=== PATIENT | male | born 1965 | race Hispanic/Latino ===

== ENCOUNTER 2021-02-26 02:44 | Emergency (ER) | payer OTHER ==
--- OUTSIDE RECORDS SUMMARY | 2021-02-26 02:47 | XMS REPORT | Continuity of Care Document ---
:1965 Author Organization [facility] t Address [address] [place] [address] Care Team Providers Name Role Phone [facility]ician ALLAN Attending Clinician Unavailable Allan PINEDO Attending Clinician ALLAN Admitting Clinician Unavailable Payers Payer Name Policy Type Policy Number Effective Date Expiration Date S desirae CIGNA II [id number] 2020 00:00:00 Problems Condition Condition Condition Status Onset Resolution Last Treating Co mments Source Name Details Category Date Date Treatment Clinician Date Right Right Disease Active Univers inguinal inguinal 10-23 ity of hernia hernia 00:00: [address] Allergies, Adverse Reactions, Alerts Allergy Allergy Status Severity Reaction(s) Onset Inactive Treating Comm ents Source Name Type Date Date Clinician NO KNOWN Drug Active Univers ALLERGIE Class ity of S [facility] Social History Social Habit Start Date Stop Date Quantity Comments Source History of tobacco Cigarette Smoker University of use [facility] Exposure to Not sure University SARS-CoV-2 (event) [facility] Alcohol intake 2020-12-13 2020-12-13 Current drinker Unive rsity of 00:00:00 00:00:00 of alcohol [facility] (finding) [place] Tobacco Comment 2020-11-05 2020-11-05 max 5/daily Universi ty of 00:00:00 00:00:00 [facility] Cigarettes smoked 2020-10-23 2020-10-23 Univers ity of current (pack per 00:00:00 00:00:00 ) - Reported Branch Cigarette 2020-10-23 2020-10-23 University of pack-years 00:00:00 00:00:00 [facility] Tobacco use and 2020-10-23 2020-10-23 Never used Universit y of exposure 00:00:00 00:00:00 [facility] Sex Assigned At [birth year] Universit y of 00:00:00 00:00:00 [facility] Smoking Status Start Date Stop Date Source Current every day smoker 2020-10-23 00:00:00 Uni versity [facility] Medications Ordered Filled Start Stop Current Ordering Indication Dosage Frequency Signature Comments Components Source Medication Medication Date Date Medication? Clinician (SIG) Name Name ibuprofen Yes TAKE 1 Univer s 600 mg 7-22 TABLET BY ity of tablet 00:00: MOUTH EVERY 6 TO Medical 8 HOURS Branch NEEDED losartan 50 Yes 50mg Take 50 mg Univers mg tablet 7-22 by mouth ity of 00:00: daily. [place] [facility] Branch lovastatin Yes TAKE 1 Unive rs 40 mg 7-22 TABLET BY ity of tablet 00:00: MOUTH [place] 00 EVERY DAY Medical AT NIGHT Branch metFORMIN Yes 850mg Take 850 Uni vers 850 mg 7-22 mg by ity of tablet 00:00: mouth [place] daily. [facility] Vital Signs Vital Name Observation Time Observation Value Comments Source Systolic blood 2020-12-13 15:36:00 115 mm[Hg] Univer sity of pressure [facility] Diastolic blood 2020-12-13 15:36:00 72 mm[Hg] Unive rsity of pressure [facility] Heart rate 2020-12-13 15:36:00 80 /min [facility] Body temperature 2020-12-13 15:36:00 37 Faye [facility] Res[facility] rate 2020-12-13 15:36:00 18 /min [facility] Body height 2020-12-13 15:36:00 172.7 cm [facility] Body weight 2020-12-13 15:36:00 78.291 kg [facility] BMI 2020-12-13 15:36:00 26.24 kg/m2 [facility] Oxygen saturation in 2020-12-13 15:36:00 95 /min University of Arterial blood by [facility] Pulse oximetry Branch Procedures This patient has no known procedures. Encounters Start End Encounter Admission Attending Care Care Encounter Source Date/Time Date/Time Type Type Clinicians Facility Department ID 2021-01-21 Outpatient Jerry KLINE [facility] DIANNE [id number] Univers 14:34:02 SWATI ely [facility] 2020-12-13 2020-12-13 Office Allan [facility] [id number] Univers 10:26:06 11:07:33 Visit Swati Castro [id number] i ty of [place] [id number] [place] Professio [id number] N[place] dical nal [address] [facility] 2020-12-13 2020-12-13 [facility] [id number] Univers 10:45:00 10:45:00 SWATI [id number] [facility] 2020-12-13 2020-12-13 Outpatient Jerry KLINE [facility] [id number] Univers 10:45:00 10:45:00 SWATI [facility] 2020-12-06 2020-12-06 [facility] [id number] Univers 10:30:00 10:30:00 SWATI [id number] [facility] 2020-11-13 2020-11-13 [facility] [id number] Univers 16:30:00 16:30:00 SWATI [facility] 2020-11-02 2020-11-02 Outpatient [facility] [id number] Univers 08:15:00 08:15:00 [id number] [facility] 2020-11-02 2020-11-02 [facility] [id number] Univers 08:15:00 08:15:00 SWATI [facility] 2020-10-23 2020-10-23 [facility] [id number] Univers 14:00:00 14:00:00 SWATI [facility] Results This patient has no known results.
[2021-02-26] MEDS ORDERED: MORPHINE 4 MG/ML SYR ONE (03:18)
[2021-02-26] MEDS ORDERED: ONDANSETRON 4 MG/2 ML VIAL ONE (03:18)
[2021-02-26] MEDS ORDERED: NA CHLORIDE 0.9% 1,000 ML ONE (03:18)
[2021-02-26 03:53] LABS: Absolute Lymphocytes (CBC) 3.2 K/uL (0.7-4.9); Basophils % 0.4 % (0-1.3); Hematocrit 40.9 % (39.6-49.0); Lymphocytes % 47.4 % (15.3-44.8); MPV 8.6 fL (7.6-11.3)
[2021-02-26 04:07] LABS: ALT/SGPT 27 U/L (12-78); AST/SGOT 27 U/L (15-37); Albumin 3.7 g/dL (3.4-5.0); Alkaline Phosphatase 66 U/L (45-117); BUN Blood Urea Nitrogen 15 mg/dL (7-18); Bicarbonate 27 mmol/L (21-32); Bilirubin Direct 0.1 mg/dL (0-0.2); Bilirubin Total 0.5 mg/dL (0.2-1.0); Glucose Level 107 mg/dL (74-106); Lipase 85 U/L (73-393); Potassium 3.6 mmol/L (3.5-5.1); Protein, Total 7.3 g/dL (6.4-8.2); Sodium Level 142 mmol/L (136-145); Troponin (Emerg Dept Use Only) < 0.02 ng/mL (0.0-0.045)
--- NOTE | 2021-02-26 05:16 | ER ---
Nurse's Notes [facility] Name: Harsha Ballard Age: 55 yrs Sex: Male : 1965 Arrival Date: 02/26/2021 Time: 02:50 Bed 7 Private MD: Diagnosis: Abdominal pain. Cholelithiasis Presentation: 02/26 02:50 Chief complaint: Patient states: Epi gastric pain 6 hours. Coronavirus screen: Vaccine da3 status: Patient reports receiving the 2nd dose of the covid vaccine. Ebola Screen: No symptoms or risks identified at this time. Risk Assessment: Do you want to hurt yourself or someone else? Patient reports no desire to harm self or others. 02:50 Method Of Arrival: Ambulatory da3 02:50 Acuity: TAMRA 3 da3 03:26 Initial Sepsis Screen: Does the patient meet any 2 criteria? No. Patient's initial lp1 sepsis screen is negative. Does the patient have a suspected source of infection? No. Patient's initial sepsis screen is negative. Onset of symptoms was February 26, 2021. Triage Assessment: 02:55 Pain: Denies pain. Quality of pain is described as crushing. da3 Historical: - Allergies: 02:53 No Known Allergies; da3 - PMHx: 02:53 Hypertensive disorder; da3 02:54 Diabetes mellitus; da3 - Immunization history:: Adult Immunizations. - Social history:: Smoking status: Patient denies any tobacco usage or history of. Screenin:26 Abuse screen: Denies threats or abuse. Denies injuries from another. Nutritional lp1 screening: No deficits noted. Tuberculosis screening: No symptoms or risk factors identified. Fall Risk None identified. Assessment: 03:15 General: Appears in no apparent distress. Behavior is appropriate for age. Pain: lp1 Complains of pain in epigastric area Pain currently is 8 out of 10 on a pain scale. Neuro: Level of Consciousness is awake, alert, obeys commands, Oriented to person, place, time, situation. Cardiovascular: Patient's skin is warm and dry. Respiratory: Respiratory effort is even, unlabored. GI: Abdomen is non-distended, Abdomen is tender to palpation in epigastric area Patient currently denies nausea, vomiting. : No signs and/or symptoms were reported regarding the genitourinary system. EENT: No signs and/or symptoms were reported regarding the EENT system. Derm: Skin is pink, warm \T\ dry. Musculoskeletal: No deficits noted. 03:26 Reassessment: Ultrasound at bedside. lp1 05:06 Reassessment: Verbal order from Provider to cancel order for EKG. lp1 05:49 Reassessment: Patient appears in no apparent distress at this time. Patient is alert, lp1 oriented x 3, equal unlabored respirations, skin warm/dry/pink. Patient states feeling better. Vital Signs: 02:50 BP 151 / 91; Pulse 76; Resp 18; Temp 98.9; Pulse Ox 100% on R/A; Weight 74.84 kg; da3 Height 5 ft. 6 in. (167.64 cm); 03:30 BP 147 / 85; Pulse 73; Resp 18; Pulse Ox 98% on R/A; lp1 04:30 BP 135 / 93; Pulse 74; Resp 18; Pulse Ox 98% on R/A; lp1 05:30 BP 133 / 77; Pulse 72; Resp 18; Pulse Ox 97% on R/A; lp1 02:50 Body Mass Index 26.63 (74.84 kg, 167.64 cm) da3 ED Course: 02:50 Patient arrived in ED. da3 02:53 Triage completed. da3 02:59 Judith Robertson, BOBBY is Primary Nurse. lp1 03:00 Diony Aquino MD is Attending Physician. pkl 03:17 Missed attempt(s): 20 gauge in left antecubital area. lp1 03:22 Inserted saline lock: 22 gauge in right forearm, using aseptic technique. Missed ds4 attempt(s): 20 gauge in right forearm. Bleeding controlled, band aid applied, catheter tip intact. 03:26 Arm band placed on. lp1 03:26 Patient has correct armband on for positive identification. Placed in gown. Bed in low lp1 position. Call light in reach. Pulse ox on. NIBP on. 03:38 US Abdomen Limited In Process Unspecified. EDMS 05:15 Sly French MD is Referral Physician. pkl 05:49 No provider procedures requiring assistance completed. IV discontinued, No lp1 redness/swelling at site. Pressure dressing applied. Administered Medications: 03:25 Drug: NS 0.9% 1000 ml Route: IV; Rate: 125 ml/hr; Site: right forearm; lp1 03:25 Drug: morphine 4 mg Route: IVP; Site: right forearm; lp1 05:07 Follow up: Response: Pain is decreased lp1 03:25 Drug: Zofran (Ondansetron) 4 mg Route: IVP; Site: right forearm; lp1 05:07 Follow up: Response: No adverse reaction lp1 Outcome: 05:16 Discharge ordered by . kvng 05:49 Discharged to home ambulatory, with significant other. lp1 05:49 Condition: good 05:49 Discharge instructions given to patient, family, Spoke with patient and son on phone at bedside Instructed on discharge instructions, follow up and referral plans. medication usage, Demonstrated understanding of instructions, follow-up care, medications. 05:50 Patient left the ED. lp1 Signatures: Dispatcher [employer] EDMS Diony Aquino MD MD pkl Pena, Laura, RN RN lp1 Elijah Suggs ds4 Jeff Jalloh RN RN da3
--- NOTE | 2021-02-26 05:16 | EDPHYS ---
Physician Documentation [facility] Name: Harsha Ballard Age: 55 yrs Sex: Male : 1965 Arrival Date: 02/26/2021 Time: 02:50 Bed 7 Private MD: ED Physician Diony Aquino HPI: 02/26 03:11 This 55 yrs old Male presents to ER via Ambulatory with unknown complaint. pkl 03:11 The patient presents with abdominal pain in the epigastric area. Onset: The pkl symptoms/episode began/occurred just prior to arrival, 6 hour(s) ago. The symptoms radiate to back. Associated signs and symptoms: none. The patient has experienced similar episodes in the past, a few times. Historical: - Allergies: 02:53 No Known Allergies; da3 - PMHx: 02:53 Hypertensive disorder; da3 02:54 Diabetes mellitus; da3 - Immunization history:: Adult Immunizations. - Social history:: Smoking status: Patient denies any tobacco usage or history of. ROS: 03:11 Eyes: Negative for injury, pain, redness, and discharge, ENT: Negative for injury, pkl pain, and discharge, Neck: Negative for injury, pain, and swelling, Cardiovascular: Negative for chest pain, palpitations, and edema, Respiratory: Negative for shortness of breath, cough, wheezing, and pleuritic chest pain. 03:11 Abdomen/GI: Positive for abdominal pain, of the epigastric area. 03:11 Back: Negative for acute changes. 03:11 : Negative for urinary symptoms. 03:11 MS/extremity: Negative for acute changes. 03:11 Skin: Negative for rash. 03:11 Neuro: Negative for altered mental status, loss of consciousness. Exam: 03:11 Head/Face: Normocephalic, atraumatic. Eyes: Pupils equal round and reactive to light, pkl extra-ocular motions intact. Lids and lashes normal. Conjunctiva and sclera are non-icteric and not injected. Cornea within normal limits. Periorbital areas with no swelling, redness, or edema. ENT: Nares patent. No nasal discharge, no septal abnormalities noted. Tympanic membranes are normal and external auditory canals are clear. Oropharynx with no redness, swelling, or masses, exudates, or evidence of obstruction, uvula midline. Mucous membranes moist. Neck: Trachea midline, no thyromegaly or masses palpated, and no cervical lymphadenopathy. Supple, full range of motion without nuchal rigidity, or vertebral point tenderness. No Meningismus. Chest/axilla: Normal chest wall appearance and motion. Nontender with no deformity. No lesions are appreciated. Cardiovascular: Regular rate and rhythm with a normal S1 and S2. No gallops, murmurs, or rubs. Normal PMI, no JVD. No pulse deficits. Respiratory: Lungs have equal breath sounds bilaterally, clear to auscultation and percussion. No rales, rhonchi or wheezes noted. No increased work of breathing, no retractions or nasal flaring. 03:11 Abdomen/GI: Bowel sounds: normal, Palpation: soft, mild abdominal tenderness, in the epigastric area. 03:11 Back: Exam negative for acute changes. 03:11 : Exam negative for acute changes. 03:11 Musculoskeletal/extremity: Exam is negative for acute changes. 03:11 Skin: Exam negative for rash. 03:11 Neuro: Orientation: is normal, Mentation: is normal, Cranial nerves: grossly normal, Motor: is normal. Vital Signs: 02:50 BP 151 / 91; Pulse 76; Resp 18; Temp 98.9; Pulse Ox 100% on R/A; Weight 74.84 kg; da3 Height 5 ft. 6 in. (167.64 cm); 03:30 BP 147 / 85; Pulse 73; Resp 18; Pulse Ox 98% on R/A; lp1 04:30 BP 135 / 93; Pulse 74; Resp 18; Pulse Ox 98% on R/A; lp1 05:30 BP 133 / 77; Pulse 72; Resp 18; Pulse Ox 97% on R/A; lp1 02:50 Body Mass Index 26.63 (74.84 kg, 167.64 cm) da3 MDM: 03:00 Patient medically screened. pkl 05:11 Data reviewed: vital signs, nurses notes, lab test result(s), radiologic studies, pkl ultrasound. ED course: Patient feeling better. Discussed lab and US results with patient, and son. Advised to follow up with Dr French ( Surgeon ) in 1 to 2 days. To return if necessary. Patient and family understood instructions. 02/26 03:07 Order name: Basic Metabolic Panel; Complete Time: 05:03 pkl 02/26 03:07 Order name: CBC with Diff; Complete Time: 05:03 pkl 02/26 03:07 Order name: Hepatic Function; Complete Time: 05:03 pkl 02/26 03:07 Order name: Lipase; Complete Time: 05:03 pkl 02/26 03:07 Order name: Troponin (emerg Dept Use Only); Complete Time: 05:03 pkl 02/26 03:07 Order name: US Abdomen Limited pkl 02/26 03:07 Order name: IV Saline Lock; Complete Time: 03:22 pkl 02/26 03:07 Order name: Labs collected and sent; Complete Time: 03: pkl Administered Medications: 03:25 Drug: NS 0.9% 1000 ml Route: IV; Rate: 125 ml/hr; Site: right forearm; lp1 03:25 Drug: morphine 4 mg Route: IVP; Site: right forearm; lp1 05:07 Follow up: Response: Pain is decreased lp1 03:25 Drug: Zofran (Ondansetron) 4 mg Route: IVP; Site: right forearm; lp1 05:07 Follow up: Response: No adverse reaction lp1 Disposition Summary: 02/26/21 05:16 Discharge Ordered Location: Home pkl Problem: new pkl Symptoms: have improved pkl Condition: Stable pkl Diagnosis - Abdominal pain. Cholelithiasis pkl Followup: pkl - With: Sly French MD - When: 1 - 2 days - Reason: Re-evaluation by your physician Discharge Instructions: - Discharge Summary Sheet pkl Forms: - Medication Reconciliation Form pkl - Thank You Letter pkl - Antibiotic Education pkl - Prescription Opioid Use pkl Prescriptions: - Augmentin 875-125 mg Oral Tablet - take 1 tablet by ORAL route every 12 hours for 7 days; 14 tablet; Refills: 0, pkl Product Selection Permitted - Ultram 50 mg Oral Tablet - take 1 tablet by ORAL route every 8 hours As needed; 15 tablet; Refills: 0, pkl Product Selection Permitted Signatures: Dispatcher [employer] Diony Allen MD MD pkl Judith Robertson RN RN lp1 Jeff Jalloh RN RN da3
[2021-02-26 05:57] VITALS: TEMP 98.9
[2021-02-26 06:01] VITALS: BP 133/77; O2SAT 97
--- NOTE | 2021-02-26 08:28 | RAD REPORT ---
EXAM DESCRIPTION: US - Abdomen Exam Limited - 02/26/2021 3:39 am CLINICAL HISTORY: ABD PAIN COMPARISON: No comparisons FINDINGS: Cholelithiasis is present. The gallbladder wall is mildly thickened measuring 3 millimeter s. The gallbladder is distended. The common bile duct is normal caliber. The presence or absence of a sonographic Mendez sign was not reported. IMPRESSION: Cholelithiasis with mild gallbladder wall thickening and gallbladder distention that cou ld represent acute cholecystitis.
== END 2021-02-26 05:50 | disposition home or self-care (01) ==
LOC: ER 02:44
DX: K80.20 Calculus of gallbladder without cholecystitis without obstruction (principal); I10 Essential (primary) hypertension
CPT/HCPCS: 85025; 80048; 36415; 80076; 84484; 83690; 76705; 96375; 96374; 99284; J7030; J2405

== ENCOUNTER 2021-05-13 03:30 | Observation (INO) | payer OTHER ==
--- OUTSIDE RECORDS SUMMARY | 2021-05-13 03:34 | XMS REPORT | Continuity of Care Document ---
:1965 Author Organization [facility] t Address [address] [place] [address] Care Team Providers Name Role Phone [facility] ALLAN Attending Clinician Unavailable Allan PINEDO Attending Clinician ALLAN Admitting Clinician Unavailable Payers Payer Name Policy Type Policy Number Effective Date Expiration Date S desirae CIGNA II [id number] 2020 00:00:00 Problems Condition Condition Condition Status Onset Resolution Last Treating Co mments Source Name Details Category Date Date Treatment Clinician Date Right Right Disease Active Univers inguinal inguinal 10-23 ity of hernia hernia 00:00: [address] Allergies, Adverse Reactions, Alerts Allergy Allergy Status Severity Reaction(s) Onset Inactive Treating Comm ents Source Name Type Date Date Clinician NO KNOWN Drug Active Univers ALLERGIE Class ity of S [facility] Social History Social Habit Start Date Stop Date Quantity Comments Source History of tobacco Cigarette Smoker University of use [facility] Exposure to Not sure University SARS-CoV-2 (event) [facility] Alcohol intake 2020-12-13 2020-12-13 Current drinker Unive rsity of 00:00:00 00:00:00 of alcohol [facility] (finding) [place] Tobacco Comment 2020-11-05 2020-11-05 max 5/daily Universi ty of 00:00:00 00:00:00 [facility] Cigarettes smoked 2020-10-23 2020-10-23 Univers ity of current (pack per 00:00:00 00:00:00 ) - Reported Branch Cigarette 2020-10-23 2020-10-23 University of pack-years 00:00:00 00:00:00 [facility] Tobacco use and 2020-10-23 2020-10-23 Never used Universit y of exposure 00:00:00 00:00:00 [facility] Sex Ass[birth year] At [birth year] Universit y of 00:00:00 00:00:00 [facility] Smoking Status Start Date Stop Date Source Current every day smoker 2020-10-23 00:00:[address] [facility] Medications Ordered Filled Start Stop Current Ordering [...] 7-22 by mouth ity of 00:00: daily. [place] [facility] Branch lovastatin Yes TAKE 1 Unive rs 40 mg 7-22 TABLET BY ity of tablet 00:00: MOUTH [place] 00 EVERY DAY Medical AT NIGHT Branch metFORMIN Yes 850mg Take 850 Uni vers 850 mg 7-22 mg by ity of tablet 00:00: mouth [place] daily. [facility] Vital Signs Vital Name Observation Time Observation Value Comments Source Systolic blood 2020-12-13 15:36:00 115 mm[Hg] Univer sity of pressure [facility] Diastolic blood 2020-12-13 15:36:00 72 mm[Hg] Unive rsity of pressure [facility] Heart rate 2020-12-13 15:36:00 80 /min [facility] Body temperature 2020-12-13 15:36:00 37 Faye [facility] 2020-12-13 15:36:00 18 /min [facility] Body height 2020-12-13 15:36:00 172.7 cm [facility] Body weight 2020-12-13 15:36:00 78.291 kg [facility] BMI 2020-12-13 15:36:00 26.24 kg/m2 [facility] Oxygen saturation in 2020-12-13 15:36:00 95 /min University of Arterial blood by [facility] Pulse oximetry Branch Procedures This patient has no known procedures. Encounters Start End Encounter Admission Attending Care Care Encounter Source Date/Time Date/Time Type Type Clinicians Facility Department ID 2021-01-21 Outpatient Jerry KLINE [facility] DIANNE [id number] Univers 14:34:[address] [facility] 2020-12-13 2020-12-13 Office Allan [facility] [id number] Univers 10:26:06 11:07:33 Visit Swati Castro [id number] i ty of [place] [id number] [place] [facility] Profess[facility] [id number] Dc dical nal [address] [facility] 2020-12-13 2020-12-13 [facility] [id number] Univers 10:45:00 10:45:00 SWATI [id number] [facility] 2020-12-13 2020-12-13 Outpatient Jerry KLINE [facility] [id number] Univers 10:45:00 10:45:00 SWATI [facility] 2020-12-06 2020-12-06 [facility] [id number] Univers 10:30:00 10:30:00 SWATI [id number] [facility] 2020-11-13 2020-11-13 [facility] [id number] Univers 16:30:00 16:30:00 SWATI [facility] 2020-11-02 2020-11-02 Outpatient [facility] [id number] Univers 08:15:00 08:15:00 [id number] [facility] 2020-11-02 2020-11-02 [facility] [id number] Univers 08:15:00 08:15:00 SWATI [facility] 2020-10-23 2020-10-23 [facility] [id number] Univers 14:00:00 14:00:00 SWATI [facility] Results This patient has no known results.
[2021-05-13] MEDS ORDERED: MORPHINE 4 MG/ML SYR ONE (04:36)
[2021-05-13] MEDS ORDERED: ONDANSETRON 4 MG/2 ML VIAL ONE ×2 (04:36→09:34)
[2021-05-13 05:00] LABS: Absolute Lymphocytes (CBC) 2.2 K/uL (0.7-4.9); Hematocrit 43.7 % (39.6-49.0); Lymphocytes % 16.1 % (15.3-44.8); MPV 11.2 fL (7.6-11.3); RBC Red Blood Cell Count 4.73 M/uL (4.33-5.43)
[2021-05-13 05:17] LABS: ALT/SGPT 29 U/L (12-78); AST/SGOT 17 U/L (15-37); Albumin 3.5 g/dL (3.4-5.0); Alkaline Phosphatase 86 U/L (45-117); BUN Blood Urea Nitrogen 15 mg/dL (7-18); Bicarbonate 25 mmol/L (21-32); Bilirubin Direct < 0.1 mg/dL (0-0.2); Bilirubin Total 0.3 mg/dL (0.2-1.0); Glucose Level 164 mg/dL (74-106); Lipase 65 U/L (73-393); Potassium 3.8 mmol/L (3.5-5.1); Protein, Total 6.9 g/dL (6.4-8.2); Sodium Level 139 mmol/L (136-145)
--- NOTE | 2021-05-13 06:40 | EDPHYS ---
Physician Documentation [facility] Name: Harsha Ballard Age: 56 yrs Sex: Male : 1965 Arrival Date: 05/13/2021 Time: 03:34 Bed 13 Private MD: ED Physician Nate Barcenas HPI: 05/13 03:56 This 56 yrs old Male presents to ER via Unassigned with complaints of kdr Abdominal Pain. 03:56 The patient presents with abdominal pain in the upper abdomen, in the right upper kdr quadrant. Onset: The symptoms/episode began/occurred at 01:00. The symptoms radiate to right back. Associated signs and symptoms: Pertinent positives: nausea, Pertinent negatives: chest pain, constipation, diarrhea, dysuria, fever, headache, hematuria, palpitations, shortness of breath, testicular pain. The symptoms are described as achy, crampy, steady, vague. Modifying factors: The symptoms are alleviated by nothing, the symptoms are aggravated by nothing. Severity of pain: At its worst the pain was mild in the emergency department the pain is unchanged. The patient has experienced a previous episode, approximately 2 months ago. The patient has not recently seen a physician. Historical: - Allergies: 03:58 No Known Allergies; sv1 - Immunization history:: Adult Immunizations up to date, Client reports receiving the 2nd dose of the Covid vaccine, Last tetanus immunization: up to date. - Social history:: Smoking status: Patient reports the use of cigarette tobacco products, denies chronic smoking, but will smoke occasionally. ROS: 03:56 Constitutional: Negative for fever, chills, and weight loss, Eyes: Negative for injury, kdr pain, redness, and discharge, ENT: Negative for injury, pain, and discharge, Neck: Negative for injury, pain, and swelling, Cardiovascular: Negative for chest pain, palpitations, and edema, Respiratory: Negative for shortness of breath, cough, wheezing, and pleuritic chest pain, Back: Negative for injury and pain, : Negative for injury, bleeding, discharge, and swelling, MS/Extremity: Negative for injury and deformity, Skin: Negative for injury, rash, and discoloration, Neuro: Negative for headache, weakness, numbness, tingling, and seizure activity. Psych: Negative for depression, anxiety, suicide ideation, homicidal ideation, and hallucinations, Allergy/Immunology: Negative for hives, rash, and allergies, Endocrine: Negative for neck swelling, polydipsia, polyuria, polyphagia, and marked weight changes, Hematologic/Lymphatic: Negative for swollen nodes, abnormal bleeding, and unusual bruising. 03:56 Abdomen/GI: Positive for abdominal pain, nausea, Negative for diarrhea, constipation, abdominal cramps, abdominal distension, anorexia, dysphagia, hematemesis, black/tarry stool, rectal pain. Exam: 03:56 Constitutional: This is a well developed, well nourished patient who is awake, alert, kdr and in no acute distress. Head/Face: Normocephalic, atraumatic. Eyes: Pupils equal round and reactive to light, extra-ocular motions intact. Lids and lashes normal. Conjunctiva and sclera are non-icteric and not injected. Cornea within normal limits. Periorbital areas with no swelling, redness, or edema. Neck: Trachea midline, no thyromegaly or masses palpated, and no cervical lymphadenopathy. Supple, full range of motion without nuchal rigidity, or vertebral point tenderness. No Meningismus. Chest/axilla: Normal chest wall appearance and motion. Nontender with no deformity. No lesions are appreciated. Cardiovascular: Regular rate and rhythm with a normal S1 and S2. No gallops, murmurs, or rubs. Normal PMI, no JVD. No pulse deficits. Respiratory: Lungs have equal breath sounds bilaterally, clear to auscultation and percussion. No rales, rhonchi or wheezes noted. No increased work of breathing, no retractions or nasal flaring. Back: No spinal tenderness. No costovertebral tenderness. Full range of motion. Skin: Warm, dry with normal turgor. Normal color with no rashes, no lesions, and no evidence of cellulitis. MS/ Extremity: Pulses equal, no cyanosis. Neurovascular intact. Full, normal range of motion. Neuro: Awake and alert, GCS 15, oriented to person, place, time, and situation. Cranial nerves II-XII grossly intact. Motor strength 5/5 in all extremities. Sensory grossly intact. Cerebellar exam normal. Normal gait. Psych: Awake, alert, with orientation to person, place and time. Behavior, mood, and affect are within normal limits. 03:56 Abdomen/GI: Inspection: abdomen appears normal, obese Bowel sounds: normal, active, all quadrants, Palpation: soft, mild abdominal tenderness, in the epigastric area, right upper quadrant and left upper quadrant, mass, is not appreciated, rebound tenderness, is not appreciated. Vital Signs: 03:47 BP 152 / 92 LA Supine (auto/reg); Pulse 68 MON; Resp 16; Pulse Ox 100% ; Weight 77.11 sv1 kg; Height 5 ft. 9 in. (175.26 cm); Pain 8/10; 04:00 BP 158 / 92 LA Supine (auto/reg); Pulse 71 MON; Resp 18 S; Pulse Ox 100% ; sv1 06:17 BP 150 / 87 LA Supine (auto/lg); Pulse 77 MON; Resp 18 S; Pulse Ox 99% on R/A; sv1 03:47 Body Mass Index 25.10 (77.11 kg, 175.26 cm) sv1 MDM: 03:56 Data reviewed: vital signs, nurses notes, lab test result(s), radiologic studies. kdr Counseling: I had a detailed discussion with the patient and/or guardian regarding: the historical points, exam findings, and any diagnostic results supporting the discharge/admit diagnosis, lab results, radiology results. 06:40 Patient medically screened. [facility] 05/13 03:45 Order name: Basic Metabolic Panel [facility] 05/13 03:45 Order name: CBC with Diff; Complete Time: 06:32 kdr 05/13 03:45 Order name: Hepatic Function; Complete Time: 06:32 kdr 05/13 03:45 Order name: Lipase; Complete Time: 06:32 kdr 05/13 03:46 Order name: Basic Metabolic Panel; Complete Time: 06:32 EDMS 05/13 07:24 Order name: CBC with Automated Diff EDMS 05/13 04:00 Order name: US Abdomen Limited kdr 05/13 07:24 Order name: CBC with Automated Diff EDMS 05/13 07:24 Order name: Comprehensive Metabolic Panel EDTX 05/13 07:24 Order name: Comprehensive Metabolic Panel EDTX 05/13 07:24 Order name: Magnesium EDMS 05/13 07:24 Order name: Magnesium EDMS 05/13 07:24 Order name: Blood Culture EDTX 05/13 08:15 Order name: SARS-COV-2 RT PCR (Document "Date of Onset" if Symptomatic) iw 05/13 03:45 Order name: IV Saline Lock; Complete Time: 04:59 kdr 05/13 03:45 Order name: Labs collected and sent; Complete Time: 04:59 kdr 05/13 04:00 Order name: CT Abd/Pelvis - IV Contrast Only kdr 05/13 07:21 Order name: CONS Physician Consult EDMS 05/13 07:24 Order name: NPO EDMS Administered Medications: 04:40 Drug: morphine 4 mg Route: IVP; Site: right wrist; sv1 04:40 Drug: Zofran (Ondansetron) 4 mg Route: IVP; Site: right wrist; sv1 08:10 Drug: morphine 4 mg Route: IVP; Site: right hand; iw Disposition Summary: 05/13/21 06:40 Hospitalization Ordered Hospitalization Status: Inpatient Admission kdr Location: Telemetry/MedSurg (Inpatient) kdr Condition: Fair kdr Problem: new kdr Symptoms: have improved kdr Bed/Room Type: Standard kdr Room Assignment: kdr Provider: Kem Alvarez(05/13/21 06:47) kdr Diagnosis - Upper abdominal pain, unspecified kdr - Intractable right upper quadrant pain kdr - Acute cholecystitis kdr Forms: - Medication Reconciliation Form kdr - SBAR form kdr Signatures: Dispatcher [employer] EDTX Nate Barcenas MD MD kdr Jillian Whyte RN RN iw Sterling Vargas RN RN sv1 Corrections: (The following items were deleted from the chart) 04:01 03:58 PMHx: Hypertensive disorder; sv1 sv1 04:01 03:58 PMHx: diabetes mellitus; sv1 sv1 06:47 06:40 Deandre Robison kdr kdr
--- NOTE | 2021-05-13 06:40 | ER ---
Nurse's Notes [facility] Name: Harsha Ballard Age: 56 yrs Sex: Male : 1965 Arrival Date: 05/13/2021 Time: 03:34 Bed 13 Private MD: Diagnosis: Upper abdominal pain, unspecified;Intractable right upper quadrant pain;Acute cholecystitis Presentation: 05/13 03:47 Chief complaint: Patient states: abd since 0100. Denies nausea. Coronavirus screen: sv1 Client denies travel out of the [place] in the last 14 days. Ebola Screen: No symptoms or risks identified at this time. Initial Sepsis Screen: Does the patient meet any 2 criteria? No. Patient's initial sepsis screen is negative. Risk Assessment: Do you want to hurt yourself or someone else? Patient reports no desire to harm self or others. Onset of symptoms was May 13, 2021. 03:47 Method Of Arrival: Ambulatory sv1 03:47 Acuity: TAMRA 3 sv1 08:31 Initial Sepsis Screen: Does the patient have a suspected source of infection? No. iw Patient's initial sepsis screen is negative. Triage Assessment: 03:58 General: Appears distressed, uncomfortable, Behavior is cooperative, appropriate for sv1 age. Pain: Complains of pain in chest. GI: Abdomen is flat, Last meal was May 12, 2021. at 20:00. Historical: - Allergies: 03:58 No Known Allergies; sv1 - Immunization history:: Adult Immunizations up to date, Client reports receiving the 2nd dose of the Covid vaccine, Last tetanus immunization: up to date. - Social history:: Smoking status: Patient reports the use of cigarette tobacco products, denies chronic smoking, but will smoke occasionally. Screenin:03 Abuse screen: Denies threats or abuse. Nutritional screening: No deficits noted. sv1 Tuberculosis screening: No symptoms or risk factors identified. Fall Risk None identified. Assessment: 04:04 GI: Abdomen is tender to palpation in epigastric area. sv1 Vital Signs: 03:47 BP 152 / 92 LA Supine (auto/reg); Pulse 68 MON; Resp 16; Pulse Ox 100% ; Weight 77.11 sv1 kg; Height 5 ft. 9 in. (175.26 cm); Pain 8/10; 04:00 BP 158 / 92 LA Supine (auto/reg); Pulse 71 MON; Resp 18 S; Pulse Ox 100% ; sv1 06:17 BP 150 / 87 LA Supine (auto/lg); Pulse 77 MON; Resp 18 S; Pulse Ox 99% on R/A; sv1 03:47 Body Mass Index 25.10 (77.11 kg, 175.26 cm) sv1 ED Course: 03:34 Patient arrived in ED. ja2 03:44 Nate Barcenas MD is Attending Physician. kdr 03:47 Sterling Vargas, RN is Primary Nurse. sv1 03:58 Triage completed. sv1 03:58 Arm band placed on right wrist. sv1 04:03 Patient has correct armband on for positive identification. Placed in gown. Bed in low sv1 position. Call light in reach. Side rails up X2. Adult w/ patient. 04:59 Basic Metabolic Panel Sent. sv1 05:13 US Abdomen Limited In Process Unspecified. EDMS 05:52 CT Abd/Pelvis - IV Contrast Only In Process Unspecified. EDMS 06:39 Deandre Robison MD is Hospitalizing Provider. kdr 06:46 Kem Alvarez MD is Hospitalizing Provider. kdr 08:31 No provider procedures requiring assistance completed. Patient admitted, IV remains in iw place. Administered Medications: 04:40 Drug: morphine 4 mg Route: IVP; Site: right wrist; sv1 04:40 Drug: Zofran (Ondansetron) 4 mg Route: IVP; Site: right wrist; sv1 08:10 Drug: morphine 4 mg Route: IVP; Site: right hand; iw Outcome: 06:40 Decision to Hospitalize by Provider. kdr 08:31 Admitted to OR accompanied by nurse, via stretcher, room 13. iw 08:31 Condition: good 08:31 Discharge instructions given to patient, family, Instructed on the need for admit. 08:31 Patient left the ED. iw Signatures: Dispatcher [employer] EDMS Nate Barcenas MD MD kdr Jillian Whyte RN RN iw Hyacinth Alcala 2 Sterling Vargas, RN RN sv1 Corrections: (The following items were deleted from the chart) 04:01 03:58 PMHx: Hypertensive disorder; sv1 sv1 04:01 03:58 PMHx: diabetes mellitus; sv1 sv1
--- NOTE | 2021-05-13 06:57 | RAD REPORT ---
EXAM DESCRIPTION: US - Abdomen Exam Limited - 05/13/2021 5:13 am CLINICAL HISTORY: ABD PAIN COMPARISON: Abdomen Exam Limited dated 02/26/2021 FINDINGS: The 13 millimeter size gallstone is present fixed near the neck of the gallbladder. Gallbl adder size is normal. Gallbladder wall thickness is upper normal. No pericholecystic fluid seen. No common duct stone or biliary tree dilatation identified. IMPRESSION: Gallstone 13 mm in size fixed near the neck of the gallbladder. Wall thickness is upper normal. No pericholecystic fluid. No biliary tree abnormality.
[2021-05-13] MEDS ORDERED: ONDANSETRON 4 MG/2 ML VIAL IV PRN (07:21)
[2021-05-13] MEDS ORDERED: MORPHINE 4 MG/ML SYR IV PRN (07:21)
[2021-05-13] MEDS: INSULIN -REGULAR HUMAN 50 UNIT/0.5 ML ML SQ SCH ×4 (07:30→20:25)
--- NOTE | 2021-05-13 07:32 | P.HP ---
Certification for Inpatient Patient admitted to: Inpatient With expected LOS: >2 Midnights Practitioner: I am a practitioner with admitting privileges, knowledge of patient current condition, hospital course, and medical plan of care. Services: Services provided to patient in accordance with Admission requirements found in Title 42 Section 412.3 of the Code of Federal Regulations Patient History Date of Service: 05/13/21 Reason for admission: Acute Cholecystitis History of Present Illness: 56yo M, PMH: HTN, NIDDM2, known cholelithiasis Presents to ED due to sudden onset of severe RUQ/Epigastric pain that woke him from his sleep at 1am. He was in his usual state of health up until this. Denies nausea, but had one episodes of emesis in the ED. Pain radiates up to R shoulder at times. Denies diarrhea, no recent change in medications. Morphine given in ED provided mild relief. He presented similarly ~2 months ago to the ED and improved. He was discharged to follow up with Dr. French, however, he never did. In the ED, he was noted to be in pain, afebrile, leukocytosis to 12k, RUQ U/S with upper limit of normal wall thickness, 13mm stone at neck of gallbladder, and normal CBD diameter. Patient is admitted for further management. General surgery consulted. - Past Medical/Surgical History -: HTN -: NIDDM2 -: R inguinal hernia repair - Family History Family History: Reviewed- Non-Contributory - Social History Smoking Status: Current every day smoker Alcohol use: Yes Place of Residence: Home Review of Systems 10-point ROS is otherwise unremarkable Physical Examination - Physical Exam General: Alert, Oriented x3, Mild distress HEENT: EOMI, Sclerae nonicteric Respiratory: Clear to auscultation bilaterally, Normal air movement Cardiovascular: No edema, Regular rate/rhythm, No murmurs Gastrointestinal: Non-distended, Tenderness (RUQ and epigastrium) Musculoskeletal: No erythema, No tenderness Integumentary: No significant lesion Neurological: Normal speech, Normal strength at 5/5 x4 extr, Normal affect - Studies Laboratory Data (last 24 hrs) 05/13/21 04:45: WBC 13.50 H, RBC 4.73, Hgb 14.8, Hct 43.7, MCV 92.4 D, MCH 31.4, MCHC 33.9, RDW 13.1, Plt Count 181, MPV 11.2, Neutrophils % 77.5 H, Lymphocytes % 16.1, Monocytes % 5.1, Eosinophils % 0.5, Basophils % 0.8, Absolute Neutrophils 10.5 H, Absolute Lymphocytes 2.2, Absolute Monocytes 0.7, Absolute Eosinophils 0.1, Absolute Basophils 0.1 05/13/21 04:21: Sodium 139, Potassium 3.8, Chloride 108 H, Carbon Dioxide 25, BUN 15, Creatinine 0.89, Estimated GFR 89 L, Glucose 164 H, Calcium 8.5, Total Bilirubin 0.3, Direct Bilirubin < 0.1, AST 17, ALT 29, Alkaline Phosphatase 86, Serum Total Protein 6.9, Albumin 3.5, Globulin 3.4, Albumin/Globulin Ratio 1.0 L, Lipase 65 L Assessment and Plan - Advance Directives Does patient have a Living Will: No Does patient have a Durable POA for Healthcare: No Physician Review Additional Text: Problem List Acute cholecystitis Cholelithiasis HTN NIDDM2 admit to med/surg does not appear to be septic NPO, IVF empiric coverage with Zosyn stone near neck of gallbladder, CBD not distended General surgery consulted - Dr. French antiemetics PRN pain medication PRN VTE: SCDs Code: full Dispo: anticipate dc home in ~2 days Time Spent Managing Pts Care (In Minutes): 70
[2021-05-13] MEDS: NA CHLORIDE 0.9% 1,000 ML IV SCH ×2 (08:00→17:10)
[2021-05-13] MEDS ORDERED: propofoL 200 MG/20 ML VIAL IV ONE (08:25)
[2021-05-13] MEDS ORDERED: LIDOCAINE 1% MPF 5 ML VIAL ONE (08:26)
[2021-05-13] MEDS ORDERED: MIDAZOLAM HCL 2 MG/2 ML INJ ONE (08:26)
[2021-05-13] MEDS ORDERED: ROCURONIUM 50 MG/5 ML VIAL IV ONE (08:26)
[2021-05-13] MEDS ORDERED: FENTANYL CITR 100 MCG/2 ML ONE (08:26)
[2021-05-13] MEDS ORDERED: NA CHLORIDE 0.9% 1,000 ML ONE (08:41)
[2021-05-13] MEDS ORDERED: SUCCINYLCHOLINE 20 MG/ML (10 ML) IV ONE (08:54)
[2021-05-13] MEDS: PIPER TAZO 3.375 GM in NA CHLORIDE 0.9% 100 ML IV SCH ×2 (09:25→17:10)
[2021-05-13] MEDS ORDERED: KETOROLAC 30 MG/ML INJ ONE (09:34)
[2021-05-13] MEDS ORDERED: GLYCOPYRROLATE 0.2 MG/ML SYR ONE (09:35)
[2021-05-13] MEDS ORDERED: NEOSTIGMINE 1 MG/ML -5 ML ONE (10:03)
--- NOTE | 2021-05-13 10:04 | P.BOP ---
Preoperative diagnosis: acute cholecystitis, intractable RUQ abd pain, Sympt cholelithiasis Postoperative diagnosis: same Primary procedure: Laparoscopic cholecystecytomy Estimated blood loss: <10cc Specimen: gb Findings: as above Anesthesia: General Complications: None Transferred to: Recovery Room Condition: Good
[2021-05-13] MEDS ORDERED: Mastisol Adhesive Liq ONE (10:11)
[2021-05-13] MEDS ORDERED: HYDROCODONE/APAP 5/325 MG TAB PO PRN (10:26)
--- NOTE | 2021-05-13 10:46 | CON ---
Date of Consultation: 05/13/2021 Reason For Service: Acute cholecystitis, right upper quadrant abdominal pain, symptomatic cholelithi asis. History Of Present Illness: This is the case of a 56-year-old male with history of hypertension, beata armendariz, who came with abdominal pain, nausea, vomiting since last night. He states that happened afte r eating sandwich yesterday 8 o'clock at night. He knows about the gallstones 2 months ago. Apparen meme, he came to the ER and they sent him home with the condition that he follows up in our surgical o ffice, but he did not have a chance. Now, he comes with the same pain and since the patient has intr actable pain, the patient was admitted to the hospital and a surgical consult was obtained. Past Medical History: As above. Social History: He smokes. He does not drink alcohol. He was counseled about smoking cessation. Family History: Noncontributory. Medications: He does not have all the list. He is going to bring the list today. No blood thinner as per the patient. Past Surgical History: Includes right inguinal hernia repair. Review of Systems: See H and P. No dysuria, hematuria, hematochezia, or melena. The patient stated nausea, vomiting, a bdominal pain. No jaundice. Physical Examination: General: The patient is awake, alert. HEENT: Pupils are anicteric. Neck: Supple. Chest: Clear. Abdomen: Epigastric right upper quadrant pain with Mendez sign positive. Rectal: Deferred. Extremities: Good capillary refill. Laboratory Data: Ultrasound of the gallbladder interpreted by Dr. Marcano as thickened gallbladder w ith a stone impacted in the gallbladder neck. WBC count of 13, hemoglobin of 14.8. Potassium 3.8, c reatinine is 0.89. Total bilirubin of 0.3, lipase 65, alkaline phosphate 6. AST and ALT within norm al limits. Assessment And Plan: This is the case of a 56-year-old patient with acute abdominal pain. Laparosco pic possible open cholecystectomy fully explained to him and his with benefits, alternatives, an d risks explained in Persian and Cameroonian, which include, but not limited to infection, bleeding, nic ge to adjacent structures, anesthesia complication, choledocholithiasis, bile leak, pancreatitis, LA, and even . He also understands this may not relieve any symptoms. He might need more than one surgical intervention. He understood, signed a consent. The patient was immediately brought to the OR. KRAIG/JAMES Voice ID: [id number] Report ID: [id number]
--- NOTE | 2021-05-13 11:49 | OP ---
Date of Procedure: 05/13/2021 Surgeon: Sly French MD Preoperative Diagnoses: Acute cholecystitis, intractable right upper quadrant abdominal pain, sympto matic cholelithiasis. Postoperative Diagnoses: Acute cholecystitis, intractable right upper quadrant abdominal pain, sympt omatic cholelithiasis. Procedure: Laparoscopic cholecystectomy Anesthesia: General plus local. Complications: None. Indication: This is the case of a 56-year-old patient, who comes to us with acute abdominal pain, ac cahto cholecystitis, symptomatic cholelithiasis, intractable right upper quadrant pain. Laparoscopic p ossible open cholecystectomy offered, which include with benefits, alternatives, and risks including, but not limited to infection, bleeding, damage to adjacent structures, anesthesia complication, chol edocholithiasis, bile leak, pancreatitis, [place], and even . He also understands this may not relie ve any symptoms. He might need more than one surgical intervention. He understood, signed a consent . Procedure In Detail: The patient was brought to the operating room, placed in supine position. Anes thesia was done without complication. Abdominal area was prepped and draped in usual sterile fashion . Marcaine 0.5% was injected for local anesthetic after time-out was called. Sharp incision was mad e in the skin. Incision was carried down to fascia, which was opened under direct vision. Peritoneu m was encountered, opened under direct vision. Vicryl #1 placed inside the fascia. Dameon trocar wa s carefully introduced. Pneumoperitoneum was obtained. I placed 3 more trocars, 5 mm each one of th em, 1 in the epigastric area and 2 in the right upper quadrant under direct visualization. This allo wed me to put a grasper in the fundus of the gallbladder, another grasper in the infundibulum, retrac ting the gallbladder in the inferolateral fashion, exposing the triangle of Calot, and obtaining crit ical view. Due to distention of the gallbladder, an Endo needle have to be placed under direct visua lization and aspirate the gallbladder under direct visualization. The needle once again was removed under direct visualization. The grasper was repositioned. Once again, we retracted the gallbladder in the inferolateral fashion, exposing the triangle of Calot, and obtaining critical view. Cystic du ct and cystic artery were clearly isolated, free circumferentially and a connection between those and the gallbladder was clearly identified. I proceeded to ligate those by using at least 3 clips proxi mal, 1 clip distal, ligation in middle. Same was done with the cystic artery. No bile leak. No ble eding. The gallbladder was removed from the liver using Bovie cauterizer and removed from the abdome n through the umbilical incision. The area was inspected once again. Clips were intact. No bile le ak. No bleeding. At that moment, I proceeded to remove the trocars under direct vision. Deflated p neumoperitoneum. Closed the fascia with #1 Vicryl. Irrigated the subcutaneous tissue, closed that w ith 3-0 chromic and skin in a subcuticular fashion with 3-0 chromic and Steri-Strips on top. Sponge count and instrument counts correct. The patient tolerated the procedure well. The patient was sent to recovery in stable condition. When the patient is discharged, we gave instructions to follow up in my office in 1 week. Call for appointment at [phone]. No heavy lifting, no more than 20 pounds. Keep the area dry for 48 hours, then may shower. Keep Steri-Strips intact. Medications; we recomm end Tylenol No.3 and antibiotics p.o. HM/MODL Voice ID: [id number] Report ID: [id number]
[2021-05-13 13:26] VITALS: BMI 25.1
--- NOTE | 2021-05-13 13:41 | RAD REPORT ---
EXAM DESCRIPTION: CT - Abdomen Pelvis W Contrast - 05/13/2021 6:51 am TECHNIQUE: Computerized axial tomography of the abdomen and pelvis was performed after the administr ation of IV iodinated nonionic contrast. This exam was performed according to our department optimiza tion program which includes automated exposure control, adjustment of the mA and/or KV according to p atient size and/or use of iterative reconstruction technique. CLINICAL HISTORY: Abdominal pain COMPARISON: None . FINDINGS: Visualized lower thorax: No significant abnormality. Liver: Normal size and attenuation. Spleen: Normal size and attenuation. Gallbladder and biliary system: Possible gallbladder wall thickening, not fully evaluated. Gallbladde r is distended. Pancreas: Normal. Adrenals: Normal. Kidneys: Normal. GI tract: Sigmoid diverticulosis. No bowel obstruction or acute inflammation. Appendix is normal in CT appearance. There is a small hiatal hernia. Lymph nodes and mesentery: Normal. Vasculature: No abdominal aortic aneurysm or dissection. Bladder: Unremarkable CT appearance. Reproductive organs: Grossly unremarkable. Peritoneum: No free fluid. Musculoskeletal structures: Bilateral L5 pars interarticularis defects. 9 mm sclerotic lesion in the left iliac bone, without aggressive features identified by CT. Other: None. IMPRESSION: The gallbladder is distended, with possible gallbladder wall thickening. If there is con cern for gallbladder pathology, further evaluation could be made with gallbladder ultrasound. Sigmoid diverticulosis, with no acute inflammatory changes identified. Small hiatal hernia. Bilateral L5 pars interarticularis defects. Electronically signed by: Agata Mckeon MD 05/13/2021 6:15 AM TITLE EXAMINER Due to temporary technical issues with the PACS/Fluency reporting system, reports are being signed by the in house radiologists without review as a courtesy to insure prompt reporting. The interpreting radiologist is fully responsible for the content of the report.
[2021-05-13] MEDS ORDERED: INFLUENZA VACCINE (for 6+ mo) 0.5 ML DOSE IMVAC ONE (15:00)
[2021-05-14] MEDS: PIPER TAZO 3.375 GM in NA CHLORIDE 0.9% 100 ML IV SCH ×2 (00:07→08:26)
[2021-05-14 03:56] LABS: Absolute Lymphocytes (CBC) 2.3 K/uL (0.7-4.9); Hematocrit 38.9 % (39.6-49.0); Lymphocytes % 19.4 % (15.3-44.8); MPV 11.3 fL (7.6-11.3); RBC Red Blood Cell Count 4.19 M/uL (4.33-5.43)
[2021-05-14 04:17] LABS: Albumin 2.7 g/dL (3.4-5.0); Bilirubin Total 0.7 mg/dL (0.2-1.0); Magnesium 2.4 mg/dL (1.8-2.4); Protein, Total 5.8 g/dL (6.4-8.2)
[2021-05-14] MEDS: NA CHLORIDE 0.9% 1,000 ML IV SCH (05:20)
[2021-05-14] MEDS: INSULIN -REGULAR HUMAN 50 UNIT/0.5 ML ML SQ SCH (07:30)
[2021-05-14 09:20] VITALS: O2SAT 96
[2021-05-14 09:32] VITALS: BP 113/61; TEMP 97.9
--- NOTE | 2021-05-14 10:03 | P.DS ---
Admission Date: 05/13/21 Discharge Date: 05/15/21 Disposition: ROUTINE DISCHARGE Discharge Condition: GOOD Reason for Admission: Acute Cholecystitis Brief History of Present Illness: 56yo M, PMH: HTN, NIDDM2, known cholelithiasis Presents to ED due to sudden onset of severe RUQ/Epigastric pain that woke him from his sleep. He had one episodes of emesis in the ED. Pain radiates up to R shoulder at times. Denies diarrhea, no recent change in medications. Morphine given in ED provided mild relief. He presented similarly ~2 months ago to the ED and improved. He was discharged to follow up with Dr. French, however, he never did. In the ED, he was noted to be in pain, afebrile, leukocytosis to 12k, RUQ U/S with upper limit of normal wall thickness, 13mm stone at neck of gallbladder, and normal CBD diameter. Patient admitted for further management. General surgery consulted. Hospital Course: Patient admitted to the medical floor and started on empiric IV Zosyn. She was seen by Dr. French general surgeon who performed lap cholecystectomy. Patient was monitored overnight after the surgery. He tolerated diet, pain well controlled. Patient deemed clinically stable for discharge per Dr. French. He is discharged with a few days of oral Augmentin. Patient will follow with Dr. French within 1 week. Vital Signs/Physical Exam: Temp Pulse Resp BP Pulse Ox 97.9 F 98 H 16 113/61 94 05/14/21 08:00 05/14/21 08:00 05/14/21 08:00 05/14/21 08:00 05/14/21 08:00 General: Alert, In no apparent distress, Oriented x3 HEENT: Mucous membr. moist/pink Neck: Supple, JVD not distended Respiratory: Clear to auscultation bilaterally, Normal air movement Cardiovascular: No edema, Regular rate/rhythm, Normal S1 S2, No murmurs Gastrointestinal: Soft and benign, Non-distended, No tenderness Musculoskeletal: No swelling Integumentary: No rashes Neurological: Normal strength at 5/5 x4 extr Laboratory Data at Discharge: WBC 12.00 K/uL (4.3-10.9) H 05/14/21 03:41 Hgb 13.1 g/dL (13.6-17.9) L 05/14/21 03:41 Hct 38.9 % (39.6-49.0) L 05/14/21 03:41 Plt Count 164 K/uL (152-406) 05/14/21 03:41 Sodium 138 mmol/L (136-145) 05/14/21 03:41 Potassium 4.0 mmol/L (3.5-5.1) 05/14/21 03:41 BUN 13 mg/dL (7-18) 05/14/21 03:41 Creatinine 1.09 mg/dL (0.55-1.3) 05/14/21 03:41 Glucose 129 mg/dL (74-106) H 05/14/21 03:41 Magnesium 2.4 mg/dL (1.8-2.4) 05/14/21 03:41 Total Bilirubin 0.7 mg/dL (0.2-1.0) 05/14/21 03:41 AST 35 U/L (15-37) 05/14/21 03:41 ALT 55 U/L (12-78) 05/14/21 03:41 Alkaline Phosphatase 62 U/L (45-117) 05/14/21 03:41 Lipase 65 U/L (73-393) L 05/13/21 04:21 Home Medications: Amox/Clavulanate [Augmentin 875-125 Tab] 1 each PO BID #10 tab 05/14/21 Codeine/APAP [Tylenol W/Codeine #3 tab] 1 tab PO Q6HP PRN #15 tab 05/14/21 New Medications: Codeine/APAP [Tylenol W/Codeine #3 tab] 1 tab PO Q6HP PRN #15 tab PRN Reason: Pain Amox/Clavulanate [Augmentin 875-125 Tab] 1 each PO BID #10 tab Physician Discharge Instructions: Call for appointment at [phone]. No heavy lifting, no more than 20 pounds. Keep area dry for 48h then may remove outer dressing and shower. Keep sterile strips intact. Diet: ADA Activity: No lifting more than 10 lbs Followup: Sly French MD [ACTIVE - CAN ADMIT] - 1 Week NONE,NONE [Primary Care Provider] -
--- NOTE | 2021-05-14 12:46 | PN ---
Date of Progress Note: 05/14/2021 Reason For Service: Status post acute cholecystitis, symptomatic cholelithiasis, and cholecystectomy . Subjective: The patient is doing well. No complaint. Tolerating diet. No fever. No shortness of breath. No chest pain. Objective: Chest: Clear. Abdomen: Soft and depressible. Intact surgical site. Extremities: Good capillary refill. The patient is afebrile. Passing flatus. Laboratory Data: Blood work shows WBC count of 12,. Total bilirubin of 0.7. Plan: The patient will be discharged home. Follow up in my office in 1 week. Call for appointment at [phone]. Keep area dry for 24 more hours, then may remove outer dressings and shower. Keep Ster i-Strip intact. No heavy lifting. The patient advised the importance of nutrition and was counseled about proper treatment of his blood pressure. KRAIG/JAMES Voice ID: [id number] Report ID: [id number]
== END 2021-05-14 12:59 | disposition home or self-care (01) ==
LOC: ER 03:30 → INTOOBSV 07:20 → ERHOLD 07:20 → 2ND 11:56
PROVIDERS: ADMIT Hospitalist; ATTEND Hospitalist
PROC: 0FT40ZZ Resection of Gallbladder, Open Approach (ICD-10-PCS; principal; 2021-05-13 09:00)
DX: K80.00 Calculus of gallbladder with acute cholecystitis without obstruction (principal); I10 Essential (primary) hypertension; E11.9 Type 2 diabetes mellitus without complications; F17.210 Nicotine dependence, cigarettes, uncomplicated; Z20.822 Contact with and (suspected) exposure to COVID-19
CPT/HCPCS: 87040 ×2; 85025 ×2; 80048; 36415 ×2; 83735; 82947 ×5; 80076; 88304; 83690; 80053; 74177; 76705; 94010; 94760 ×3; 99285; 47600; U0003; Q9967; J2704; J0330; J2543 ×4; J2250; J3010; J2710; G0378 ×4; J7030 ×3; J2405 ×2

== ENCOUNTER 2023-06-29 19:43 | Emergency (ER) | payer OTHER ==
--- OUTSIDE RECORDS SUMMARY | 2023-06-29 19:47 | XMS REPORT | Continuity of Care Document ---
Author Name Unknown Address [address] [place] [address] [facility] thconnect Address [address] [place] [address] Care Team Providers Care Procurement Forester Name Role Phone Jessica, [facility] Primary Car e Physician QUINCY LEMUS Attending Clinician Unavailable Quincy Lemus MD Attending Clinician [phone] Only, Adc Test Attending Clinician Unavailable Doctor Unassigned, [place] Attending Clinician U navailable Gramm COAGULANT DIPPERLorraine A Attending Clinician [phone] QUINCY LEMUS Admitting Clinician Unavailable Quincy Lemus MD Admitting Clinician [phone] Payers Payer Name Policy Type Policy Number Effective Date Expirati on Date Source [employer]IG[employer] II [id number] 2020 00:00:00 Problems Condition Name Condition Details Condition Category Status Onset Date Resolution Date Last Treatment Date Treating Clinician Comments Source Right inguinal hernia Right inguinal hernia Disease Active 10-23 00:00: 00 [facility] Allergies, Adverse Reactions, Alerts Allergy Name Allergy Type Status Severity Reaction(s) Onset Date Inactive Date Treating Clinician Comments Source NO KNOWN ALLERGIE S Drug Class Active [facility] Social History Social Habit Start Date Stop Date Quantity Comments Source History of tobacco use Cigarette Smoker [facility] Exposure to SARS-CoV-2 (event) Not sure [facility] Alcohol intake 2020-12-13 00:00:00 2020-12-13 00:00:00 Current drinker of alcohol (finding) [facility] Tobacco Comment 2020-11-05 00:00:00 2020-11-05 00:00:00 max 5/daily [facility] Cigarettes smoked current (pack per day) - Reported 2020-10-23 00:00:00 2020-10-23 00:00:00 [facility] Cigarette pack-years 2020-10-23 00:00:00 2020-10-23 00:00:00 [facility] Tobacco use and exposure 2020-10-23 00:00:00 2020-10-23 00:00:00 Never used [facility] Sex Assigned At 1965 00:00:00 1965 00:00:00 [facility] Smoking Status Start Date Stop Date Source Current every day smoker 2020-10-23 00:00:00 [facility] Medications Ordered Medication Name Filled Medication Name Start Date Stop Date Current Medication? Ordering Clinician Indication Dosage Frequency Signature (SIG) Comments Components Source &lt 0 10-12 00:00: 00 No 50 TAKE 1 TABLET BY MOUTH EVERY 8 HOURS NEEDED FOR PAIN 0 10-12 00:00: 00 No 800 &lt 2021-0 10-12 00:00: 00 No 850 &lt 0 10-11 00:00: 00 No TAKE 1 TABLET BY MOUTH EVERY 8 HOURS NEEDED 0 - 00:00: 00 No TAKE 1 TABLET BY MOUTH NIGHTLY 0 6 00:00: 00 No losartan 50 mg tablet 0 08-08 00:00: 00 No 1mg metformin 850 mg tablet 0 08-08 00:00: 00 No 1mg lovastatin 40 mg tablet 0 08-08 00:00: 00 No 1mg Dose Unknown 0 08-08 00:00: 00 No metformin 850 mg tablet 0 - 00:00: 00 No 1mg losartan 50 mg tablet 0 - 00:00: 00 No 1mg lovastatin 40 mg tablet 0 04-20 00:00: 00 No 1mg metformin 850 mg tablet 0 -17 00:00: 00 No 1mg metformin 850 mg tablet 0 10-11 00:00: 00 No 1mg losartan 50 mg tablet 10-11 00:00: 00 No 1mg lovastatin 40 mg tablet 10-11 00:00: 00 No 1mg ibuprofen 600 mg tablet 10-11 00:00: 00 No 1mg losartan 50 mg tablet 10-11 00:00: 00 Yes 50mg Take 50 mg by mouth daily. [facility] metFORMIN 850 mg tablet 10-11 00:00: 00 Yes 850mg Take 850 mg by mouth daily. [facility] losartan 50 mg tablet 07-04 00:00: 00 No 1mg metformin 850 mg tablet 07-04 00:00: 00 No 1mg lovastatin 40 mg tablet 07-04 00:00: 00 No 1mg losartan 50 mg tablet 06-26 00:00: 00 No 1mg losartan 50 mg tablet 05-28 00:00: 00 No 5mg metformin 850 mg tablet 05-28 00:00: 00 No 1mg lovastatin 40 mg tablet 05-28 00:00: 00 No 1mg metformin 850 mg tablet 04-18 00:00: 00 No 1mg lovastatin 40 mg tablet 04-18 00:00: 00 No 1mg metformin 850 mg tablet 2019-03 00:00: 00 No 1mg metformin 850 mg tablet 2019-03 00:00: 00 No 1mg lovastatin 40 mg tablet 2019-03 00:00: 00 No 1mg lovastatin 40 mg tablet 2019-03 00:00: 00 No 1mg losartan 50 mg tablet 2019-03 00:00: 00 No 1mg metformin ER 500 mg 24 hr tablet,exte nded release (gastric) 2019-03 00:00: 00 No 1mg metformin 850 mg tablet 2019-03 00:00: 00 No 1mg losartan 50 mg tablet 2019-03 00:00: 00 No 5mg lovastatin 20 mg tablet 2019-03 00:00: 00 No 1mg losartan 50 mg tablet 09-29 00:00: 00 No 1mg lovastatin 20 mg tablet 09-29 00:00: 00 No 1mg losartan 50 mg tablet 4 00:00: 00 No 1mg lovastatin 20 mg tablet 06-24 00:00: 00 No 1mg losartan 50 mg tablet 2018-03 0 00:00: 00 No 1mg lovastatin 20 mg tablet 2018-03 0 00:00: 00 No 1mg lovastatin 20 mg tablet 06-25 00:00: 00 No 1mg lovastatin 20 mg tablet 2017-03 0 00:00: 00 No 1mg lovastatin 20 mg tablet 09-22 00:00: 00 No 1mg amlodipine 5 mg tablet 06-30 00:00: 00 No 1mg lovastatin 20 mg tablet 06-30 00:00: 00 No 1mg lovastatin 20 mg tablet 04-03 00:00: 00 No 1mg amlodipine 5 mg tablet 04-01 00:00: 00 No 1mg amlodipine 5 mg tablet 2016-03 00:00: 00 No 1mg amlodipine 5 mg tablet 12-03 00:00: 00 No 1mg gemfibrozil 600 mg tablet 12-03 00:00: 00 No 1mg amlodipine 5 mg tablet 05-21 00:00: 00 No 1mg amlodipine 5 mg tablet 2015-03 00:00: 00 No 1mg amlodipine 5 mg tablet 08-28 00:00: 00 No 1mg amlodipine 5 mg tablet 2014-0324 00:00: 00 No 1mg amlodipine 5 mg tablet 09-08 00:00: 00 No 1mg amlodipine 5 mg tablet 07-10 00:00: 00 No 1mg amlodipine 5 mg tablet 05-24 00:00: 00 No mg Vital Signs Vital Name Observation Time Observation Value Comments S ource Systolic blood pressure 2020-12-13 15:36:00 115 mm[Hg] [facility] Diastolic blood pressure 2020-12-13 15:36:00 72 mm[Hg] [facility] Heart rate 2020-12-13 15:36:00 80 /min [facility] Body temperature 2020-12-13 15:36:00 37 Faye [facility] Respiratory rate 2020-12-13 15:36:00 18 /min [facility] Body height 2020-12-13 15:36:[address] [facility] Body weight 2020-12-13 15:36:[address] [facility] BMI 2020-12-13 15:36:00 26.24 kg/m2 [facility] Oxygen saturation in Arterial blood by Pulse oximetry 2020-12-13 15:36:00 95 /min [place] [facility] BP Systolic 2021-10-12 13:24:00 111 mm[Hg] BP Diastolic 2021-10-12 13:24:00 73 mm[Hg] Weight Measured 2021-10-12 13:24:00 160.60 pounds Height Measured 2021-10-12 13:24:00 66.00 inches Body Temperature 2021-10-12 13:24:00 97.40 degrees Heart Rate 2021-10-12 13:24:00 78.00 /min Respiratory Rate 2021-10-12 13:24:00 BP Systolic 2021-04-20 16:38:00 107 mm[Hg] BP Diastolic 2021-04-20 16:38:00 71 mm[Hg] Weight Measured 2021-04-20 16:38:00 165.40 pounds Height Measured 2021-04-20 16:38:00 66.00 inches Body Temperature 2021-04-20 16:38:00 98.40 degrees Heart Rate 2021-04-20 16:38:00 107.00 /min Respiratory Rate 2021-04-20 16:38:00 16.00 /min BP Systolic 2020-10-11 16:37:00 97 mm[Hg] BP Diastolic 2020-10-11 16:37:00 60 mm[Hg] Weight Measured 2020-10-11 16:37:00 168.80 pounds Height Measured 2020-10-11 16:37:00 66.00 inches Body Temperature 2020-10-11 16:37:00 98.30 degrees Heart Rate 2020-10-11 16:37:00 83.00 /min Respiratory Rate 2020-10-11 16:37:00 BP Systolic 2020-06-26 16:57:00 114 mm[Hg] BP Diastolic 2020-06-26 16:57:00 77 mm[Hg] Weight Measured 2020-06-26 16:57:00 168.20 pounds Height Measured 2020-06-26 16:57:00 66.00 inches Body Temperature 2020-06-26 16:57:00 98.70 degrees Heart Rate 2020-06-26 16:57:00 94.00 /min Respiratory Rate 2020-06-26 16:57:00 16.00 /min BP Systolic 2020-01-26 17:33:00 95 mm[Hg] BP Diastolic 2020-01-26 17:33:00 59 mm[Hg] Weight Measured 2020-01-26 17:33:00 165.00 pounds Height Measured 2020-01-26 17:33:00 66.00 inches Body Temperature 2020-01-26 17:33:00 99.40 degrees Heart Rate 2020-01-26 17:33:00 79.00 /min Respiratory Rate 2020-01-26 17:33:00 18.00 /min BP Systolic 2020-01-14 08:50:00 116 mm[Hg] BP Diastolic 2020-01-14 08:50:00 72 mm[Hg] Weight Measured 2020-01-14 08:50:00 161.60 pounds Height Measured 2020-01-14 08:50:00 66.00 inches Body Temperature 2020-01-14 08:50:00 98.60 degrees Heart Rate 2020-01-14 08:50:00 72.00 /min Respiratory Rate 2020-01-14 08:50:00 19.00 /min BP Systolic 2019-06-25 16:55:00 121 mm[Hg] BP Diastolic 2019-06-25 16:55:00 70 mm[Hg] Weight Measured 2019-06-25 16:55:00 176.00 pounds Height Measured 2019-06-25 16:55:00 66.00 inches Body Temperature 2019-06-25 16:55:00 98.80 degrees Heart Rate 2019-06-25 16:55:00 72.00 /min Respiratory Rate 2019-06-25 16:55:00 17.00 /min BP Systolic 2018-12-24 16:19:00 121 mm[Hg] BP Diastolic 2018-12-24 16:19:00 71 mm[Hg] Weight Measured 2018-12-24 16:19:00 176.00 pounds Height Measured 2018-12-24 16:19:00 66.00 inches Body Temperature 2018-12-24 16:19:00 98.60 degrees Heart Rate 2018-12-24 16:19:00 77.00 /min Respiratory Rate 2018-12-24 16:19:00 BP Systolic 2018-06-25 16:47:00 117 mm[Hg] BP Diastolic 2018-06-25 16:47:00 76 mm[Hg] Weight Measured 2018-06-25 16:47:00 179.20 pounds Height Measured 2018-06-25 16:47:00 66.00 inches Body Temperature 2018-06-25 16:47:00 98.30 degrees Heart Rate 2018-06-25 16:47:00 79.00 /min Respiratory Rate 2018-06-25 16:47:00 22.00 /min BP Systolic 2017-12-26 16:08:00 127 mm[Hg] BP Diastolic 2017-12-26 16:08:00 76 mm[Hg] Weight Measured 2017-12-26 16:08:00 175.00 pounds Height Measured 2017-12-26 16:08:00 66.00 inches Body Temperature 2017-12-26 16:08:00 98.50 degrees Heart Rate 2017-12-26 16:08:00 76.00 /min Respiratory Rate 2017-12-26 16:08:00 16.00 /min Plan of Care Planned Activity Planned Date Details Comments Source Goal Plan of Care Note [code = 61544-5] Goal Plan of Care Note [code = 48651-6] Goal Plan of Care Note [code = 47878-0] Goal Plan of Care Note [code = 34479-5] Goal Plan of Care Note [code = 18859-3] Goal Plan of Care Note [code = 12043-7] Goal Plan of Care Note [code = 42615-7] Goal Plan of Care Note [code = 25767-9] Goal Plan of Care Note [code = 37062-0] Goal Plan of Care Note [code = 58276-9] Goal Plan of Care Note [code = 25539-0] Goal Plan of Care Note [code = 35497-9] Goal Plan of Care Note [code = 03759-4] Goal Plan of Care Note [code = 76128-1] Goal Plan of Care Note [code = 69409-5] Goal Plan of Care Note [code = 46586-8] Goal Plan of Care Note [code = 79516-9] Goal Plan of Care Note [code = 77929-1] Goal Plan of Care Note [code = 21959-2] Goal Plan of Care Note [code = 89063-1] Goal Plan of Care Note [code = 18754-3] Goal Plan of Care Note [code = 43152-3] Goal Plan of Care Note [code = 27649-4] Goal Plan of Care Note [code = 31415-9] Goal Plan of Care Note [code = 55973-3] Goal Plan of Care Note [code = 00080-0] Goal Plan of Care Note [code = 83439-3] Encounters Start Date/Time End Date/Time Encounter Type Admission Type Attending [facility] Care Department Encounter ID Source 2021-01-21 14:34:02 Outpatient [facility] [id number] [facility] 2023-04-08 08:14:37 2023-04-08 08:14:37 Outpatient [facility] [id number] rFancis Rodríguez 2023-03-09 11:54:56 2023-03-09 11:54:56 Outpatient SFA SFA [id number] Francisjennifer Rodríguez 2023-01-19 14:05:31 2023-01-19 14:05:31 Outpatient SFA SFA [id number] Francis Rodríguez 2022-10-08 17:36:52 2022-10-08 17:36:52 Outpatient SFA SFA [id number] Francisjennifer Rodríguez 2022-07-05 09:26:35 2022-07-05 09:26:35 Outpatient SFA SFA [id number] Francis Rodríguez 2022-07-03 16:36:55 2022-07-03 16:36:55 Outpatient SFA SFA 0413 Francis Lee Ann Marcos 2022-04-07 17:00:07 2022-04-07 17:00:07 Outpatient SFA SFA [id number] Francis Rodríguez 2021-10-12 00:00:00 2021-10-12 00:00:00 Outpatient Visit [id number] 2020-12-13 10:26:06 2020-12-13 11:07:33 Office Visit Quincy Lemus [facility] [id number] 350.1.13.10 4.2.7.2.686 [id number] [facility] 2020-12-13 10:45:00 2020-12-13 10:45:00 Outpatient R QUINCY LEMUS [facility] [id number] [facility] 2020-11-27 00:00:00 2020-11-27 00:00:00 Telephone Quincy Lemus [facility] [id number] [id number] 4.2.7.2.686 [id number] [facility] 2020-11-13 16:10:13 2020-11-13 17:03:00 Office Visit Quincy Lemus [facility] [id number] 350.1.13.10 4.2.7.2.686 [id number] [facility] 2020-11-13 16:30:00 2020-11-13 16:30:00 Outpatient R QUINCY LEMUS [facility] [id number] [facility] 2020-11-06 08:30:00 2020-11-06 11:13:00 Surgery Quincy Lemus [facility] [id number] 350.1.13.10 4.2.7.2.686 [id number] [facility] 2020-11-06 07:39:00 2020-11-06 11:05:00 Hospital Encounter Quincy Lemus [facility] 1.20.114 350.1.13.10 4.2.7.2.686 [id number] [facility] 2020-11-02 08:24:05 2020-11-02 08:39:05 Laboratory Only Only, Adc Test Quincy Lemus [facility] 1.0.114 350.1.13.10 4.2.7.2.686 [id number] [facility] 2020-11-02 08:15:00 2020-11-02 08:15:00 Outpatient R QUINCY LEMUS [facility] [id number] [facility] 2020-11-02 00:00:00 2020-11-02 00:00:00 Orders Only Doctor Unassigned, [place] [facility] 1.0.114 350.1.13.10 4.2.7.2.686 [id number] [facility] 2020-10-23 13:48:59 2020-10-23 14:42:01 [facility] 1..114 350.1.13.10 4.2.7.2.686 [id number] [facility] 2020-10-23 14:00:00 2020-10-23 14:00:00 Outpatient R QUINCY LEMUS [facility] [id number] [facility] 2020-10-23 00:00:00 2020-10-23 00:00:00 Prep For [facility] 1..114 350.1.13.10 4.2.7.2.686 [id number] [facility] Results Test Description Test Time Test Comments Results Result Co mments Source ALBUMIN/CREATININE RATIO, URINE, [id number] 04:11:17* Test Item Value Reference Range Interpretation Comme nts CREATININE, URINE, CONC. (test code = 2072) 136.4 MG/DL NOT ESTAB ALBUMIN, URINE, RANDOM (test code = 81743) 0.4 MG/DL NOT ESTAB CALC ALBUMIN/CREAT, RND (test code = 37601) 3 MG/G <30 Note: Albumin/Creatinine ratio reference interval reflects ADA and NKF guidelines. HEMOGLOBIN [id number] 03:02:27* Test Item Value Reference Range Interpretation Comme nts HEMOGLOBIN A1c (test code = 47049) 7.3 % 4.2-5.6 H [employer] GUIDELINES FOR HGB A1C: PREDIABETES/INCREASED RISK . . . . . . . 5.7-6.4% DIAGNOSIS OF DIABETES . . . . . . . . . >=6.5% WITH CONFIRMATION OR APPROPRIATE SYMPTOMS NOTE: ASSAY MAY BE AFFECTED BY HEMOGLOBINOPATHIES (SICKLE CELL ANEMIA, S-C DISEASE, OTHERS) OR ARTIFICIALLY LOWERED BY DECREASED RED CELL SURVIVAL (HEMOLYTIC ANEMIAS, BLOOD LOSS, ETC.). CONSIDER ALTERNATE TESTING OR LABORATORY CONSULTATION. VITAMIN [id number] 07:45:11* Test Item Value Reference Range Interpretation Comme [facility] VITAMIN B1 (test code = 4952) TEST NOT PERFORMED Unable to perform testing, specimen not received.Charges adjusted as applicable. TESTING PERFORMED AT [facility] [address] [place] [address], [address] [address] CLIA NO: [id number] [facility] has important pathology staff changes effective 05/21/2022. New pathology staff will provide uninterrupted, excellent patient care and clinical consultation. See URL: [email or web address] | [email or web address]. UNLESS OTHERWISE INDICATED, ALL TESTING PERFORMED AT [facility] [address] [place] [address] HAND ROLLER: DANIELA BROWN M.D. CLIA NUMBER [id number] [place]. [id number] VITAMIN [id number] 02:47:23* Test Item Value Reference Range Interpretation Comme [facility] VITAMIN B-12 (test code = 2840) 795 PG/ML 200-950 LIPID [id number] 23:59:26* Test Item Value Reference Range Interpretation Comme nts CHOLESTEROL (test code = 2210) 199 MG/DL <200 TRIGLYCERIDES (test code = 2232) 182 MG/DL <150 H HDL CHOLESTEROL (test code = 2220) 40 MG/DL >39 CALC LDL CHOL (test code = 2237) 129 MG/DL <100 H NOTE: CALCULATED LDL IS BASED ON MARIO-GUZMAN METHOD WHICHINCLUDES ADJUSTABLE TRIGLYCERIDE:VLDL CHOLESTEROL RATIO.THIS FACTOR VARIES BY MEASURED TRIGLYCERIDE AND NON-HDLCHOLESTEROL CONCENTRATIONS WITH INCREASED CALCULATED LDL SEENIN HIGHER TRIGLYCERIDE OR LOWER NON-HDL SPECIMENS. FOR MOREINFORMATION, SEE CLIENT ANNOUNCEMENT AT [email or web address] RISK RATIO LDL/HDL (test code = 223) 3.23 RATIO <3.55 COMPREHENSIVE METABOLIC [id number] 23:59:26* Test Item Value Reference Range Interpretation Comme nts GLUCOSE (test code = 2216) 108 MG/DL 70-99 H BUN (test code = 2207) 16 MG/DL 6-20 CREATININE (test code = 2214) 0.94 MG/DL 0.80-1.40 eGFR (2020 CKD-EPI) (test code = 74952) 95 ML/MIN/1.73 >60 CALC BUN/CREAT (test code = 2235) 17 RATIO 6-28 SODIUM (test code = 223) 141 MEQ/L 133-146 POTASSIUM (test code = 2228) 4.9 MEQ/L 3.5-5.4 CHLORIDE (test code = 2215) 102 MEQ/L 95-107 CARBON DIOXIDE (test code = 2206) 23 MEQ/L 19-31 CALCIUM (test code = 2209) 9.8 MG/DL 8.5-10.5 PROTEIN, TOTAL (test code = 2228) 7.1 G/DL 6.1-8.3 ALBUMIN (test code = 2200) 4.6 G/DL 3.5-5.2 CALC GLOBULIN (test code = 2240) 2.5 G/DL 1.9-3.7 CALC A/G RATIO (test code = 2234) 1.8 RATIO 1.0-2.6 BILIRUBIN, TOTAL (test code = 2206) 0.5 MG/DL See_Comment [Automated me ssage] The system which generated this result transmitted reference range: <=1.2. The reference range was not used to interpret this result as normal/abnormal. ALKALINE PHOSPHATASE (test code = 2204) 94 U/L 40-123 AST (test code = 2218) 30 U/L 9-50 ALT (test code = 2219) 31 U/L 5-50 HEMOGLOBIN [id number] 04:36:26* Test Item Value Reference Range Interpretation Comme nts HEMOGLOBIN A1c (test code = 98758) 6.5 % 4.2-5.6 H [employer] GUIDELINES FOR HGB A1C: PREDIABETES/INCREASED RISK . . . . . . . 5.7-6.4% DIAGNOSIS OF DIABETES . . . . . . . . . >=6.5% WITH CONFIRMATION OR APPROPRIATE SYMPTOMS NOTE: ASSAY MAY BE AFFECTED BY HEMOGLOBINOPATHIES (SICKLE CELL ANEMIA, S-C DISEASE, OTHERS) OR ARTIFICIALLY LOWERED BY DECREASED RED CELL SURVIVAL (HEMOLYTIC ANEMIAS, BLOOD LOSS, ETC.). CONSIDER ALTERNATE TESTING OR LABORATORY CONSULTATION. CBC W/AUTO DIFF WITH [id number] 03:37:30* Test Item Value Reference Range Interpretation Comme nts WBC (test code = 1001) 8.5 K/UL 3.5-11.0 RBC (test code = 1002) 4.80 M/UL 4.50-6.10 HEMOGLOBIN (test code = 1003) 15.4 G/DL 13.5-17.0 HEMATOCRIT (test code = 1004) 45.4 % 40.0-51.0 MCV (test code = 1005) 94.6 fL 80.0-99.0 MCH (test code = 1006) 32.1 PG 25.0-33.0 MCHC (test code = 1007) 33.9 G/DL 31.0-36.0 RDW (test code = 1038) 12.5 % 11.5-15.0 NEUTROPHILS (test code = 1008) 59.7 % LYMPHOCYTES (test code = 1010) 30.8 % MONOCYTES (test code = 1011) 7.4 % EOSINOPHILS (test code = 1012) 1.2 % BASOPHILS (test code = 1013) 0.5 % IMMATURE GRANULOCYTES (test code = 1036) 0.4 % NUCLEATED RBCS (test code = 1065) 0.0 /100 WBC'S See_Comment [Automated messa ge] The system which generated this result transmitted reference range: 0.0. The reference range was not used to interpret this result as normal/abnormal. PLATELET COUNT (test code = 1015) 186 K/UL 130-400 ABSOLUTE NEUTROPHILS (test code = 1066) 5.10 K/UL 1.50-7.50 ABSOLUTE LYMPHOCYTES (test code = 1067) 2.63 K/UL 1.00-4.00 ABSOLUTE MONOCYTES (test code = 1068) 0.63 K/UL 0.20-1.00 ABSOLUTE EOSINOPHILS (test code = 1040) 0.10 K/UL 0.00-0.50 ABSOLUTE BASOPHILS (test code = 1069) 0.04 K/UL 0.00-0.20 ABS IMMATURE GRANULOCYTES (test code = 1020) 0.03 K/UL 0.00-0.10 ABS NUCLEATED RBCS (test code = 06091) 0.00 K/UL 0.00-0.11 ALBUMIN/CREATININE RATIO, URINE, [id number] 06:31:15* Test Item Value Reference Range Interpretation Comme nts CREATININE, URINE, RANDOM (test code = 2072) 313.5 MG/DL NOT ESTAB ALBUMIN, URINE, RANDOM (test code = 87622) 1.3 MG/DL NOT ESTAB CALC ALBUMIN/CREAT, RND (test code = 58698) 4 MG/G <30 Note: Albumin/Creatinine ratio reference interval reflects ADA and NKF guidelines. HIV 1/2 4TH GEN, RFLX [id number] 03:44:39* Test Item Value Reference Range Interpretation Comme nts HIV 1/2 4TH GEN, RFLX CONF ( test code = 3514) NON-REACTIVE NON-REACTIVE PSA, [id number] 03:11:59* Test Item Value Reference Range Interpretation Comme nts PSA, TOTAL (test code = 2606) 0.15 NG/ML See_Comment NOTE: Methodolog y is Sharad Bijan Electrochemiluminescence Immunoassay traceable to WHO reference standard 96/760. UNLESS OTHERWISE INDICATED, ALL TESTING PERFORMED [facility] [employer] [address] [place] [address] HAND ROLLER: REGAN LYLES M.D. CLIA NUMBER [id number] [place]. [id number] [Automated message] The system which generated this result transmitted reference range: <=4.00. The reference range was not used to interpret this result as normal/abnormal. COMPREHENSIVE METABOLIC [id number] 02:14:46* Test Item Value Reference Range Interpretation Comme nts GLUCOSE (test code = 7) 90 MG/DL 70-99 BUN (test code = 2207) 17 MG/DL 6-20 CREATININE (test code = 221) 0.88 MG/DL 0.80-1.40 eGFR (2020 CKD-EPI) (test code = 87389) 102 ML/MIN/1.73 >60 CALC BUN/CREAT (test code = 2235) 19 RATIO 6-28 SODIUM (test code = 223) 144 MEQ/L 133-146 POTASSIUM (test code = 2228) 4.6 MEQ/L 3.5-5.4 CHLORIDE (test code = 5) 105 MEQ/L 95-107 CARBON DIOXIDE (test code = 2206) 20 MEQ/L 19-31 CALCIUM (test code = 220) 9.3 MG/DL 8.5-10.5 PROTEIN, TOTAL (test code = 222) 6.9 G/DL 6.1-8.3 ALBUMIN (test code = 2201) 4.4 G/DL 3.5-5.2 CALC GLOBULIN (test code = 2240) 2.5 G/DL 1.9-3.7 CALC A/G RATIO (test code = 2234) 1.8 RATIO 1.0-2.6 BILIRUBIN, TOTAL (test code = 220) 0.4 MG/DL See_Comment [Automated me ssage] The system which generated this result transmitted reference range: <=1.2. The reference range was not used to interpret this result as normal/abnormal. ALKALINE PHOSPHATASE (test code = 2203) 87 U/L 40-121 AST (test code = 2218) 28 U/L 9-50 ALT (test code = 2219) 32 U/L 5-50 LIPID [id number] 02:14:46* Test Item Value Reference Range Interpretation Comme nts CHOLESTEROL (test code = 2210) 170 MG/DL <200 TRIGLYCERIDES (test code = 2232) 282 MG/DL <150 H HDL CHOLESTEROL (test code = 2220) 30 MG/DL >39 L CALC LDL CHOL (test code = 2237) 100 MG/DL <100 H NOTE: CALCULATED LDL IS BASED ON MARIO-GUZMAN METHOD WHICHINCLUDES ADJUSTABLE TRIGLYCERIDE:VLDL CHOLESTEROL RATIO.THIS FACTOR VARIES BY MEASURED TRIGLYCERIDE AND NON-HDLCHOLESTEROL CONCENTRATIONS WITH INCREASED CALCULATED LDL SEENIN HIGHER TRIGLYCERIDE OR LOWER NON-HDL SPECIMENS. FOR MOREINFORMATION, SEE CLIENT ANNOUNCEMENT AT [email or web address] RISK RATIO LDL/HDL (test code = 2238) 3.33 RATIO <3.55 HEMOGLOBIN [id number] 02:12:22* Test Item Value Reference Range Interpretation Comme nts HEMOGLOBIN A1c (test code = 55884) 6.4 % 4.2-5.6 H LIPID [id number] 00:00:00* Test Item Value Reference Range Interpretation Comme nts CHOLESTEROL (test code = 2210) 183 MG/DL TRIGLYCERIDES (test code = 2232) 186 MG/DL HDL CHOLESTEROL (test code = 2220) 38 MG/DL CALC LDL CHOL (test code = 2237) 115 MG/DL RISK RATIO LDL/HDL (test cod e = 2238) 3.03 RATIO COMPREHENSIVE METABOLIC [id number] 00:00:00* Test Item Value Reference Range Interpretation Comme nts GLUCOSE (test code = 2217) 121 MG/DL BUN (test code = 2208) 17 MG/DL CREATININE (test code = 2214) 0.88 MG/DL eGFR AMER. (test cod e = 79816) 113 ML/MIN/1.73 eGFR NON- AMER. (test code = 43166) 97 ML/MIN/1.73 CALC BUN/CREAT (test code = 2235) 19 RATIO SODIUM (test code = 2231) 140 MEQ/L POTASSIUM (test code = 2228) 4.9 MEQ/L CHLORIDE (test code = 2215) 101 MEQ/L CARBON DIOXIDE (test code = 2206) 24 MEQ/L CALCIUM (test code = 2209) 9.7 MG/DL PROTEIN, TOTAL (test code = 2229) 7.1 G/DL ALBUMIN (test code = 2201) 4.4 G/DL CALC GLOBULIN (test code = 2240) 2.7 G/DL CALC A/G RATIO (test code = 2234) 1.6 RATIO BILIRUBIN, TOTAL (test code = 2207) 0.5 MG/DL ALKALINE PHOSPHATASE (test code = 2204) 84 U/L AST (test code = 2218) 24 U/L ALT (test code = 2219) 27 U/L HEMOGLOBIN [id number] 00:00:00* Test Item Value Reference Range Interpretation Comme nts HEMOGLOBIN A1c (test code = 34358) 6.4 % HEMOGLOBIN [id number] 00:00:00* Test Item Value Reference Range Interpretation Comme nts HEMOGLOBIN A1c (test code = 17562) 6.4 % LIPID [id number] 00:00:00* Test Item Value Reference Range Interpretation Comme nts CHOLESTEROL (test code = 2210) 164 MG/DL TRIGLYCERIDES (test code = 2232) 131 MG/DL HDL CHOLESTEROL (test code = 2220) 36 MG/DL CALC LDL CHOL (test code = 2237) 105 MG/DL RISK RATIO LDL/HDL (test cod e = 2238) 2.92 RATIO COMPREHENSIVE METABOLIC [id number] 00:00:00* Test Item Value Reference Range Interpretation Comme nts GLUCOSE (test code = 2217) 111 MG/DL BUN (test code = 2208) 24 MG/DL CREATININE (test code = 2214) 0.91 MG/DL eGFR AMER. (test cod e = 83957) 110 ML/MIN/1.73 eGFR NON- AMER. (test code = 34276) 95 ML/MIN/1.73 CALC BUN/CREAT (test code = 2235) 26 RATIO SODIUM (test code = 2231) 139 MEQ/L POTASSIUM (test code = 2228) 5.4 MEQ/L CHLORIDE (test code = 2215) 105 MEQ/L CARBON DIOXIDE (test code = 2206) 26 MEQ/L CALCIUM (test code = 2209) 9.3 MG/DL PROTEIN, TOTAL (test code = 2229) 7.0 G/DL ALBUMIN (test code = 2201) 4.5 G/DL CALC GLOBULIN (test code = 2240) 2.5 G/DL CALC A/G RATIO (test code = 2234) 1.8 RATIO BILIRUBIN, TOTAL (test code = 2207) 0.4 MG/DL ALKALINE PHOSPHATASE (test code = 2204) 79 U/L AST (test code = 2218) 16 U/L ALT (test code = 2219) 18 U/L HEMOGLOBIN [id number] 00:00:00* Test Item Value Reference Range Interpretation Comme nts HEMOGLOBIN A1c (test code = 94889) 6.4 % HEMOGLOBIN [id number] 00:00:00* Test Item Value Reference Range Interpretation Comme nts HEMOGLOBIN A1c (test code = 54305) 6.4 % LIPID [id number] 00:00:00* Test Item Value Reference Range Interpretation Comme nts CHOLESTEROL (test code = 2210) 213 MG/DL TRIGLYCERIDES (test code = 2232) 252 MG/DL HDL CHOLESTEROL (test code = 2220) 35 MG/DL CALC LDL CHOL (test code = 2237) 139 MG/DL RISK RATIO LDL/HDL (test cod e = 2238) 3.97 RATIO COMPREHENSIVE METABOLIC [id number] 00:00:00* Test Item Value Reference Range Interpretation Comme nts GLUCOSE (test code = 2217) 230 MG/DL BUN (test code = 2208) 19 MG/DL CREATININE (test code = 2214) 0.87 MG/DL eGFR AMER. (test cod e = 39021) 114 ML/MIN/1.73 eGFR NON- AMER. (test code = 58530) 99 ML/MIN/1.73 CALC BUN/CREAT (test code = 2235) 22 RATIO SODIUM (test code = 2231) 143 MEQ/L POTASSIUM (test code = 2228) 4.8 MEQ/L CHLORIDE (test code = 2215) 103 MEQ/L CARBON DIOXIDE (test code = 2206) 26 MEQ/L CALCIUM (test code = 2209) 9.6 MG/DL PROTEIN, TOTAL (test code = 2229) 7.3 G/DL ALBUMIN (test code = 2201) 4.4 G/DL CALC GLOBULIN (test code = 2240) 2.9 G/DL CALC A/G RATIO (test code = 2234) 1.5 RATIO BILIRUBIN, TOTAL (test code = 2207) 0.4 MG/DL ALKALINE PHOSPHATASE (test code = 2204) 122 U/L AST (test code = 2218) 28 U/L ALT (test code = 2219) 32 U/L HEMOGLOBIN [id number] 00:00:00* Test Item Value Reference Range Interpretation Comme nts HEMOGLOBIN A1c (test code = 84871) 11.4 % HEMOGLOBIN [id number] 00:00:00* Test Item Value Reference Range Interpretation Comme nts HEMOGLOBIN A1c (test code = 52558) 11.4 % HEMOGLOBIN [id number] 00:00:00* Test Item Value Reference Range Interpretation Comme nts HEMOGLOBIN A1c (test code = 55989) 6.9 % HEMOGLOBIN [id number] 00:00:00* Test Item Value Reference Range Interpretation Comme nts HEMOGLOBIN A1c (test code = 99217) 6.9 % LIPID [id number] 00:00:00* Test Item Value Reference Range Interpretation Comme nts CHOLESTEROL (test code = 2210) 187 MG/DL TRIGLYCERIDES (test code = 2232) 260 MG/DL HDL CHOLESTEROL (test code = 2220) 31 MG/DL CALC LDL CHOL (test code = 2237) 104 MG/DL RISK RATIO LDL/HDL (test cod e = 2238) 3.35 RATIO COMPREHENSIVE METABOLIC [id number] 00:00:00* Test Item Value Reference Range Interpretation Comme nts GLUCOSE (test code = 2217) 192 MG/DL BUN (test code = 2208) 21 MG/DL CREATININE (test code = 2214) 0.88 MG/DL eGFR AMER. (test cod e = 81211) 114 ML/MIN/1.73 eGFR NON- AMER. (test code = 74924) 99 ML/MIN/1.73 CALC BUN/CREAT (test code = 2235) 24 RATIO SODIUM (test code = 2231) 138 MEQ/L POTASSIUM (test code = 2228) 4.1 MEQ/L CHLORIDE (test code = 2215) 101 MEQ/L CARBON DIOXIDE (test code = 2206) 23 MEQ/L CALCIUM (test code = 2209) 9.2 MG/DL PROTEIN, TOTAL (test code = 2229) 6.8 G/DL ALBUMIN (test code = 2201) 4.3 G/DL CALC GLOBULIN (test code = 2240) 2.5 G/DL CALC A/G RATIO (test code = 2234) 1.7 RATIO BILIRUBIN, TOTAL (test code = 2207) 0.3 MG/DL ALKALINE PHOSPHATASE (test code = 2204) 102 U/L AST (test code = 2218) 20 U/L ALT (test code = 2219) 29 U/L COMPREHENSIVE METABOLIC [id number] 00:00:00* Test Item Value Reference Range Interpretation Comme nts GLUCOSE (test code = 2217) 114 MG/DL BUN (test code = 2208) 18 MG/DL CREATININE (test code = 2214) 0.91 MG/DL eGFR AMER. (test cod e = 23800) 113 ML/MIN/1.73 eGFR NON- AMER. (test code = 69606) 97 ML/MIN/1.73 CALC BUN/CREAT (test code = 2235) 20 RATIO SODIUM (test code = 2231) 141 MEQ/L POTASSIUM (test code = 2228) 5.4 MEQ/L CHLORIDE (test code = 2215) 103 MEQ/L CARBON DIOXIDE (test code = 2206) 25 MEQ/L CALCIUM (test code = 2209) 9.9 MG/DL PROTEIN, TOTAL (test code = 2229) 7.1 G/DL ALBUMIN (test code = 2201) 4.6 G/DL CALC GLOBULIN (test code = 2240) 2.5 G/DL CALC A/G RATIO (test code = 2234) 1.8 RATIO BILIRUBIN, TOTAL (test code = 2207) 0.4 MG/DL ALKALINE PHOSPHATASE (test code = 2204) 83 U/L AST (test code = 2218) 35 U/L ALT (test code = 2219) 44 U/L LIPID [id number] 00:00:00* Test Item Value Reference Range Interpretation Comme nts CHOLESTEROL (test code = 2210) 215 MG/DL TRIGLYCERIDES (test code = 2232) 295 MG/DL HDL CHOLESTEROL (test code = 2220) 37 MG/DL CALC LDL CHOL (test code = 2237) 119 MG/DL RISK RATIO LDL/HDL (test cod e = 2238) 3.22 RATIO MICROALBUMIN/CREATININE, RANDOM AND [id number] 00:00:00* Test Item Value Reference Range Interpretation Comme nts CREATININE, URINE, CONC. (te st code = 2072) 200.9 MG/DL ALBUMIN, URINE, RANDOM (test code = 11128) 0.6 MG/DL CALC ALBUMIN/CREAT, RND (fatimah t code = 99600) 3 MG/G COMPREHENSIVE METABOLIC [id number] 00:00:00* Test Item Value Reference Range Interpretation Comme nts GLUCOSE (test code = 2217) 99 MG/DL BUN (test code = 2208) 21 MG/DL CREATININE (test code = 2214) 0.73 MG/DL eGFR AMER. (test cod e = 25086) 124 ML/MIN/1.73 eGFR NON- AMER. (test code = 14647) 107 ML/MIN/1.73 CALC BUN/CREAT (test code = 2235) 29 RATIO SODIUM (test code = 2231) 137 MEQ/L POTASSIUM (test code = 2228) 4.6 MEQ/L CHLORIDE (test code = 2215) 100 MEQ/L CARBON DIOXIDE (test code = 2206) 23 MEQ/L CALCIUM (test code = 2209) 9.3 MG/DL PROTEIN, TOTAL (test code = 2229) 7.3 G/DL ALBUMIN (test code = 2201) 4.6 G/DL CALC GLOBULIN (test code = 2240) 2.7 G/DL CALC A/G RATIO (test code = 2234) 1.7 RATIO BILIRUBIN, TOTAL (test code = 2207) 0.3 MG/DL ALKALINE PHOSPHATASE (test code = 2204) 90 U/L AST (test code = 2218) 24 U/L ALT (test code = 2219) 34 U/L LIPID [id number] 00:00:00* Test Item Value Reference Range Interpretation Comme nts CHOLESTEROL (test code = 2210) 212 MG/DL TRIGLYCERIDES (test code = 2232) 206 MG/DL HDL CHOLESTEROL (test code = 2220) 35 MG/DL CALC LDL CHOL (test code = 2237) 136 MG/DL RISK RATIO LDL/HDL (test cod e = 2238) 3.88 RATIO THYROID II PROFILE (T3U, T4, T7, [id number] 00:00:00* Test Item Value Reference Range Interpretation Comme nts T3 UPTAKE (test code = 2817) 29.4 % T4 (THYROXINE) (test code = 2819) 8.2 UG/DL CALCULATED T7 (FTI) (test co de = 2820) 2.41 TSH (test code = 2821) 2.360 UIU/ML PSA, [id number] 00:00:00* Test Item Value Reference Range Interpretation Comme nts PSA, TOTAL (test code = 2606) 0.20 NG/ML PSA, [id number] 00:00:00* Test Item Value Reference Range Interpretation Comme nts PSA, TOTAL (test code = 2606) 0.20 NG/ML CBC W/AUTO [id number] 00:00:00* Test Item Value Reference Range Interpretation Comme nts WBC (test code = 1001) 9.1 K/UL RBC (test code = 1002) 5.08 M/UL HEMOGLOBIN (test code = 1003) 16.0 G/DL HEMATOCRIT (test code = 1004) 45.1 % MCV (test code = 1005) 88.8 fL MCH (test code = 1006) 31.5 PG MCHC (test code = 1007) 35.5 G/DL RDW (test code = 1038) 12.4 % NEUTROPHILS (test code = 1008) 61.3 % LYMPHOCYTES (test code = 1010) 28.7 % MONOCYTES (test code = 1011) 7.4 % EOSINOPHILS (test code = 1012) 2.0 % BASOPHILS (test code = 1013) 0.6 % PLATELET COUNT (test code = 1015) 201 K/UL CBC W/AUTO [id number] 00:00:00* Test Item Value Reference Range Interpretation Comme nts WBC (test code = 1001) 9.1 K/UL RBC (test code = 1002) 5.08 M/UL HEMOGLOBIN (test code = 1003) 16.0 G/DL HEMATOCRIT (test code = 1004) 45.1 % MCV (test code = 1005) 88.8 fL MCH (test code = 1006) 31.5 PG MCHC (test code = 1007) 35.5 G/DL RDW (test code = 1038) 12.4 % NEUTROPHILS (test code = 1008) 61.3 % LYMPHOCYTES (test code = 1010) 28.7 % MONOCYTES (test code = 1011) 7.4 % EOSINOPHILS (test code = 1012) 2.0 % BASOPHILS (test code = 1013) 0.6 % PLATELET COUNT (test code = 1015) 201 K/UL COMPREHENSIVE METABOLIC [id number] 00:00:00* Test Item Value Reference Range Interpretation Comme nts GLUCOSE (test code = 2217) 127 MG/DL BUN (test code = 2208) 11 MG/DL CREATININE (test code = 2214) 0.82 MG/DL eGFR AMER. (test cod e = 95520) 120 ML/MIN/1.73 eGFR NON- AMER. (test code = 17279) 103 ML/MIN/1.73 CALC BUN/CREAT (test code = 2235) 13 RATIO SODIUM (test code = 2231) 141 MEQ/L POTASSIUM (test code = 2228) 5.1 MEQ/L CHLORIDE (test code = 2215) 102 MEQ/L CARBON DIOXIDE (test code = 2206) 27 MEQ/L CALCIUM (test code = 2209) 9.5 MG/DL PROTEIN, TOTAL (test code = 2229) 7.1 G/DL ALBUMIN (test code = 2201) 4.4 G/DL CALC GLOBULIN (test code = 2240) 2.7 G/DL CALC A/G RATIO (test code = 2234) 1.6 RATIO BILIRUBIN, TOTAL (test code = 2207) 0.4 MG/DL ALKALINE PHOSPHATASE (test code = 2204) 93 U/L AST (test code = 2218) 25 U/L ALT (test code = 2219) 32 U/L LIPID [id number] 00:00:00* Test Item Value Reference Range Interpretation Comme nts CHOLESTEROL (test code = 2210) 176 MG/DL TRIGLYCERIDES (test code = 2232) 374 MG/DL HDL CHOLESTEROL (test code = 2220) 36 MG/DL CALC LDL CHOL (test code = 2237) 65 MG/DL RISK RATIO LDL/HDL (test cod e = 2238) 1.81 RATIO COMPREHENSIVE METABOLIC [id number] 00:00:00* Test Item Value Reference Range Interpretation Comme nts GLUCOSE (test code = 2217) 105 MG/DL BUN (test code = 2208) 14 MG/DL CREATININE (test code = 2214) 0.83 MG/DL eGFR AMER. (test cod e = 14195) 120 ML/MIN/1.73 eGFR NON- AMER. (test code = 85613) 103 ML/MIN/1.73 CALC BUN/CREAT (test code = 2235) 17 RATIO SODIUM (test code = 2231) 141 MEQ/L POTASSIUM (test code = 2228) 4.4 MEQ/L CHLORIDE (test code = 2215) 103 MEQ/L CARBON DIOXIDE (test code = 2206) 26 MEQ/L CALCIUM (test code = 2209) 8.9 MG/DL PROTEIN, TOTAL (test code = 2229) 6.5 G/DL ALBUMIN (test code = 2201) 4.1 G/DL CALC GLOBULIN (test code = 2240) 2.4 G/DL CALC A/G RATIO (test code = 2234) 1.7 RATIO BILIRUBIN, TOTAL (test code = 2207) 0.5 MG/DL ALKALINE PHOSPHATASE (test code = 2204) 80 U/L AST (test code = 2218) 23 U/L ALT (test code = 2219) 26 U/L LIPID [id number] 00:00:00* Test Item Value Reference Range Interpretation Comme nts CHOLESTEROL (test code = 2210) 150 MG/DL TRIGLYCERIDES (test code = 2232) 215 MG/DL HDL CHOLESTEROL (test code = 2220) 32 MG/DL CALC LDL CHOL (test code = 2237) 75 MG/DL RISK RATIO LDL/HDL (test cod e = 2238) 2.34 RATIO HEMOGLOBIN [id number] 00:00:00* Test Item Value Reference Range Interpretation Comme nts HEMOGLOBIN A1c (test code = 87495) 6.1 % HEMOGLOBIN [id number] 00:00:00* Test Item Value Reference Range Interpretation Comme nts HEMOGLOBIN A1c (test code = 12290) 6.1 % HEMOGLOBIN [id number] 00:00:00* Test Item Value Reference Range Interpretation Comme nts HEMOGLOBIN A1c (test code = 12022) 6.1 % HEMOGLOBIN [id number] 00:00:00* Test Item Value Reference Range Interpretation Comme nts HEMOGLOBIN A1c (test code = 45280) 6.1 % [id number] 00:00:00* Test Item Value Reference Range Interpretation Comme nts TSH (test code = 2821) 1.4 UIU/ML [id number] 00:00:00* Test Item Value Reference Range Interpretation Comme nts TSH (test code = 2821) 1.4 UIU/ML COMPREHENSIVE METABOLIC [id number] 00:00:00* Test Item Value Reference Range Interpretation Comme nts GLUCOSE (test code = 2217) 106 MG/DL BUN (test code = 2208) 15 MG/DL CREATININE (test code = 2214) 0.9 MG/DL eGFR AMER. (test cod e = 02048) 109 ML/MIN/1.73 eGFR NON- AMER. (test code = 65322) 90 ML/MIN/1.73 CALCULATED BUN/CREAT (test code = 2235) 17 RATIO SODIUM (test code = 2231) 136 MEQ/L POTASSIUM (test code = 2228) 4.9 MEQ/L CHLORIDE (test code = 2215) 103 MEQ/L CARBON DIOXIDE (test code = 2206) 23 MEQ/L CALCIUM (test code = 2209) 9.8 MG/DL PROTEIN, TOTAL (test code = 2229) 7.4 G/DL ALBUMIN (test code = 2201) 4.7 G/DL CALCULATED GLOBULIN (test code = 2240) 2.7 G/DL CALCULATED A/G RATIO (test code = 2234) 1.7 RATIO BILIRUBIN, TOTAL (test code = 2207) 0.6 MG/DL ALKALINE PHOSPHATASE (test code = 220) 84 U/L SGOT (AST) (test code = 221) 26 U/L SGPT (ALT) (test code = 221) 41 U/L LIPID [id number] 00:00:00* Test Item Value Reference Range Interpretation Comme nts CHOLESTEROL (test code = 2210) 271 MG/DL TRIGLYCERIDES (test code = 2232) 231 MG/DL HDL CHOLESTEROL (test code = 2220) 40 MG/DL CALCULATED LDL CHOL (test co de = 2237) 185 MG/DL RISK RATIO LDL/HDL (test cod e = 223) 4.62 RATIO CBC W/AUTO [id number] 00:00:00* Test Item Value Reference Range Interpretation Comme nts WBC (test code = 1001) 8.8 K/UL RBC (test code = 1002) 5.14 M/UL HEMOGLOBIN (test code = 1003) 16.3 G/DL HEMATOCRIT (test code = 1004) 47.4 % MCV (test code = 1005) 92.2 fL MCH (test code = 1006) 31.7 PG MCHC (test code = 1007) 34.4 G/DL RDW (test code = 1038) 13.5 % NEUTROPHILS (test code = 1008) 60 % LYMPHOCYTES (test code = 1010) 31 % MONOCYTES (test code = 1011) 6 % EOSINOPHILS (test code = 1012) 2 % BASOPHILS (test code = 1013) % PLATELET COUNT (test code = 1015) 234 K/UL CBC W/AUTO [id number] 00:00:00* Test Item Value Reference Range Interpretation Comme nts WBC (test code = 1001) 8.8 K/UL RBC (test code = 1002) 5.14 M/UL HEMOGLOBIN (test code = 1003) 16.3 G/DL HEMATOCRIT (test code = 1004) 47.4 % MCV (test code = 1005) 92.2 fL MCH (test code = 1006) 31.7 PG MCHC (test code = 1007) 34.4 G/DL RDW (test code = 1038) 13.5 % NEUTROPHILS (test code = 1008) 60 % LYMPHOCYTES (test code = 1010) 31 % MONOCYTES (test code = 1011) 6 % EOSINOPHILS (test code = 1012) 2 % BASOPHILS (test code = 1013) % PLATELET COUNT (test code = 1015) 234 K/UL"
[2023-06-29] MEDS ORDERED: LIDOCAINE 1% MPF 5 ML VIAL ONE (21:11)
[2023-06-29] MEDS ORDERED: BUPIVACAINE 0.5% PF 10 ML VIAL ONE (21:11)
--- NOTE | 2023-06-29 22:24 | EDPHYS ---
Physician Documentation [facility] Name: Harsha Maradiaga Age: 58 yrs Sex: Male : 1965 Arrival Date: 06/29/2023 Time: 19:43 Bed 17 Private MD: ED Physician Vito Barraza HPI: 06/28 21:05 This 58 yrs old Male presents to ER via Ambulatory with complaints of High cp Blood Pressure - post teeth pulled/mouth bleed. 21:05 The patient has elevated blood pressure and discovered this at home, with a home cp device. Onset: The symptoms/episode began/occurred today. Associated signs and symptoms: Pertinent positives: left lower tooth pain after having extraction today. patient concerned that blood pressure was elevated at home and that he has continued bleeding from tooth extraction site. Historical: - Allergies: 20:26 No Known Allergies; cm10 - PMHx: 20:26 Diabetes mellitus; Hypercholesterolemia; cm10 - Immunization history:: Adult Immunizations up to date. - Infectious Disease History:: Denies. - Social history:: Smoking status: unknown. ROS: 21:10 Constitutional: Negative for body aches, chills, fever, cp 21:10 ENT: Positive for dental pain, 21:10 Cardiovascular: Negative for chest pain, palpitations, 21:10 Respiratory: Negative for cough, shortness of breath, wheezing, 21:10 Abdomen/GI: Negative for abdominal pain, vomiting, diarrhea, constipation, 21:10 Neuro: Negative for altered mental status, dizziness, headache, loss of consciousness, syncope, weakness, 21:10 All other systems are negative, Exam: 21:15 Constitutional: The patient appears in no acute distress, alert, awake, cp non-diaphoretic, non-toxic, well developed, well nourished, 21:15 Head/face: Noted is swelling, that is mild, of the left lower jaw, tenderness, that is mild, 21:15 Eyes: Periorbital structures: appear normal, Conjunctiva: normal, no exudate, no injection, Sclera: no appreciated abnormality, Lids and lashes: appear normal, bilaterally, 21:15 ENT: External ear(s): are unremarkable, Nose: is normal, Mouth: Lips: moist, Oral mucosa: pink and intact, moist, Gums: bleeding, on the lower left first molar, mild swelling, Dental exam: left lower first molar extracted with mild bleeding noted at extraction site, Voice: is normal, 21:15 Neck: ROM/movement: is normal, is supple, without pain, no range of motions limitations, 21:15 Chest/axilla: Inspection: normal, 21:15 Cardiovascular: Rate: normal, Rhythm: regular, 21:15 Respiratory: the patient does not display signs of respiratory distress, Respirations: normal, no use of accessory muscles, no retractions, labored breathing, is not present, Breath sounds: are clear throughout, no decreased breath sounds, no stridor, no wheezing, 21:15 Neuro: Orientation: to person, place \T\ time. Mentation: is normal, Motor: moves all fours, strength is normal, Sensation: is normal, Vital Signs: 20:25 BP 157 / 81; Pulse 75; Resp 18; Temp 98.5; Pulse Ox 96% on R/A; Weight 77.11 kg; Height cm10 5 ft. 5 in. ; Pain 9/10; 21:30 BP 135 / 78; Pulse 79; Resp 17 S; Pulse Ox 98% on R/A; ha1 22:49 BP 138 / 86; Pulse 76; Resp 17 S; Pulse Ox 96% on R/A; ha1 20:25 Body Mass Index 28.29 (77.11 kg, 165.1 cm) cm10 20:25 Pain Scale: Adult cm10 MDM: 20:22 Patient medically screened. cp 22:23 Data reviewed: vital signs, nurses notes, and as a result, I will discharge patient. cp 22:23 ED course: VSS. Blood pressure monitored in ED and will discharge to home for patient cp to continue to monitor and f/u with pcp. small piece of surgiseal and gauze placed at extraction site to control bleeding. patient to leave in place tonight. Administered Medications: 22:45 Not Given (Physician Discretion): lidocaine(1 %) 5 ml 5 ml Infiltration once; to bedsideha1 22:45 Not Given (Physician Discretion): bupivacaine(0.5 %) 5 ml 10 ml Infiltration once ha1 Disposition: 06/29 21:18 Co-signature as Attending Physician, Vito Barraza MD I agree with the assessment sp4 and plan of care. I reviewed the patient's care provided by the Advanced Practice Provider and agree with the diagnosis and treatment plan. Disposition Summary: 06/29/23 22:24 Discharge Ordered Notes: Location: Home cp Problem: new cp Symptoms: have improved cp Condition: Stable cp Diagnosis - Dental procedure status cp Followup: cp - With: Emergency Department - When: As needed - Reason: Worsening of condition Discharge Instructions: - Discharge Summary Sheet cp - Dental Pain cp Forms: - Medication Reconciliation Form cp - Thank You Letter cp - Antibiotic Education cp - Prescription Opioid Use cp - Patient Portal Instructions cp - Leadership Thank You Letter cp - Work release form ha1 Signatures: Manpreet Esparza PA PA cp Potepalov, Sergey, MD MD sp4 Elvia French RN RN cm10 Amanda Gunderson RN ha1
--- NOTE | 2023-06-29 22:24 | ER ---
Nurse's Notes [facility] Name: Harsha Maradiaga Age: 58 yrs Sex: Male : 1965 Arrival Date: 06/29/2023 Time: 19:43 Bed 17 Private MD: Diagnosis: Dental procedure status Presentation: 06/28 20:25 Chief complaint: Patient states: Had 2 molars on left lower side pulled today and is cm10 having pain and some bleeding. Pt noted to have a blood clot at the site where the teeth were pulled. Pt also reports that his blood pressure was elevated. Coronavirus screen: Client denies travel out of the [place] in the last 14 days. At this time, the client does not indicate any symptoms associated with coronavirus-19. Ebola Screen: Patient denies travel to an Ebola-affected area in the 21 days before illness onset. No symptoms or risks identified at this time. Initial Sepsis Screen: Does the patient meet any 2 criteria? No. Patient's initial sepsis screen is negative. Does the patient have a suspected source of infection? No. Patient's initial sepsis screen is negative. Risk Assessment: Do you want to hurt yourself or someone else? Patient reports no desire to harm self or others. Onset of symptoms was June 29, 2023. 20:25 Method Of Arrival: Ambulatory cm10 20:25 Acuity: TAMRA 4 cm10 Triage Assessment: 20:27 General: Appears in no apparent distress. comfortable, Behavior is calm, cooperative. cm10 Pain: Complains of pain in lower left second molar and lower left first molar. Historical: - Allergies: 20:26 No Known Allergies; cm10 - PMHx: 20:26 Diabetes mellitus; Hypercholesterolemia; cm10 - Immunization history:: Adult Immunizations up to date. - Infectious Disease History:: Denies. - Social history:: Smoking status: unknown. Screenin:50 [facility] ED Fall Risk Assessment (Adult) History of falling in the last 3 months, ha1 including since admission No falls in past 3 months (0 pts) Confusion or Disorientation No (0 pts) Intoxicated or Sedated No (0 pts) Impaired Gait No (0 pts) Mobility Assist Device Used No (0 pt) Altered Elimination No (0 pt) Score/Fall Risk Level 0 - 2 = Low Risk Oriented to surroundings, Maintained a safe environment, Educated pt \T\ family on fall prevention, incl call for assistance when getting out of bed, Hourly rounding (assess needs \T\ fall precautionary measures) done. Abuse screen: Denies threats or abuse. Denies injuries from another. Nutritional screening: No deficits noted. Tuberculosis screening: No symptoms or risk factors identified. Assessment: 20:30 General: Appears comfortable, Behavior is calm, cooperative. Pain: Complains of pain in ha1 lower left first molar and lower left second molar Pain does not radiate. Pain currently is 4 out of 10 on a pain scale. Quality of pain is described as aching. Neuro: Level of Consciousness is awake, alert, obeys commands, Oriented to person, place, time, situation. Respiratory: Airway is patent Trachea midline Respiratory effort is even, unlabored, Respiratory pattern is regular, symmetrical. EENT: Reports teeth removed today and bleeding at the area . Derm: Skin is pink, warm \T\ dry. Musculoskeletal: Circulation, motion, and sensation intact. Range of motion: intact in all extremities. 21:30 Reassessment: Patient and/or family updated on plan of care and expected duration. Pain ha1 level reassessed. Patient is alert, oriented x 3, equal unlabored respirations, skin warm/dry/pink. bleeding stopped with pressure orsemary. 22:46 Reassessment: Patient and/or family updated on plan of care and expected duration. Pain ha1 level reassessed. Patient is alert, oriented x 3, equal unlabored respirations, skin warm/dry/pink. Patient states feeling better. Patient states symptoms have improved. Vital Signs: 20:25 BP 157 / 81; Pulse 75; Resp 18; Temp 98.5; Pulse Ox 96% on R/A; Weight 77.11 kg; Height cm10 5 ft. 5 in. ; Pain 9/10; 21:30 BP 135 / 78; Pulse 79; Resp 17 S; Pulse Ox 98% on R/A; ha1 22:49 BP 138 / 86; Pulse 76; Resp 17 S; Pulse Ox 96% on R/A; ha1 20:25 Body Mass Index 28.29 (77.11 kg, 165.1 cm) cm10 20:25 Pain Scale: Adult cm10 ED Course: 19:47 Patient arrived in ED. ra3 20:20 Patient has correct armband on for positive identification. Bed in low position. Call ha1 light in reach. Side rails up X 1. Adult w/ patient. 20:22 Manpreet Esparza PA is PHCP. cp 20:22 Vito Barraza MD is Attending Physician. cp 20:26 Triage completed. cm10 20:27 Arm band placed on Patient placed in an exam room, on a stretcher. cm10 21:06 Amanda Gunderson, BOBBY is Primary Nurse. ha1 22:50 No provider procedures requiring assistance completed. Patient did not have IV access ha1 during this emergency room visit. 22:51 Provided Education on: follow ups. ha1 Administered Medications: 22:45 Not Given (Physician Discretion): lidocaine(1 %) 5 ml 5 ml Infiltration once; to bedsideha1 22:45 Not Given (Physician Discretion): bupivacaine(0.5 %) 5 ml 10 ml Infiltration once ha1 Medication: 22:51 VIS not applicable for this client. ha1 Outcome: 22:24 Discharge ordered by MD. cp 22:50 Discharged to home ambulatory, with family, ha1 22:50 Condition: stable 22:50 Discharge instructions given to patient, family, Instructed on discharge instructions, follow up and referral plans. Demonstrated understanding of instructions, follow-up care, 22:51 Patient left the ED. ha1 Signatures: Manpreet Esparza PA PA cp Ayala, Heidy, RN RN ha1 Elvia French RN RN cm10 Emi Russell 3
[2023-06-30 04:27] VITALS: BP 138/86; TEMP 98.5; O2SAT 96
== END 2023-06-29 22:51 | disposition home or self-care (01) ==
LOC: ER 19:43
DX: K08.89 Other specified disorders of teeth and supporting structures (principal); Z98.818 Other dental procedure status
CPT/HCPCS: 99283; J2001